=== PATIENT | female | born 1945 | race Caucasian/White ===

== ENCOUNTER 2020-12-14 12:19 | Outpatient (CLI) | payer MEDICARE, MEDICAID, SELFPAY ==
--- NOTE | ~2020-12-14 | CT_ITS ---
EXAMINATION: CT abdomen pelvis wo con DATE: 12/14/2020 12:42 INDICATION: Left upper quadrant abdominal pain for 3 weeks. Chronic diarrhea. TECHNIQUE: Computed tomography (CT) of the abdomen and pelvis was performed without intravenous contr ast. Automated exposure control and iterative reconstruction technique were employed. Exam dose: 117 0.91 mGy-cm total exam DLP. COMPARISON: None. FINDINGS: There is moderate right pleural effusion. There is a catheter in the right pleural space. T here is compressive atelectasis of the right lower lobe. No left pleural effusion. Trace pericardial effusion. Small sliding hiatal hernia. Postoperative change of the stomach and small bowel. The gallbladder appears to be surgically absent. No hepatic, splenic or pancreatic mass lesion is evident. Prominent fatty change of the liver. No porter creatic calcification. No bile duct or pancreatic duct dilatation is evident. Normal morphology of the adrenal glands. No renal mass lesion or urinary tract calculus or hydroureteronephrosis. The uterus, adnexal areas an d urinary bladder are unremarkable. There is extensive atherosclerotic calcification of the abdominal aorta but no aneurysm. No intraperi toneal or retroperitoneal or pelvic mass lesion or adenopathy or ascites is evident. Numerous diverticula of the sigmoid colon; no CT evidence of diverticulitis. Small bowel caliber is within normal range, but the increased proximal versus distal small bowel destiny montse may indicate mild partial obstruction at the postsurgical region. No bowel wall thickening, pneumatosis or intraperitoneal free air. There is up to approximately 14 x 38 mm area of hyperattenuation in the left anterior abdominal wall musculature, possibly a hematoma. Moderate burst fracture deformity of L2. Biconcavity of the L4 and particularly L5 vertebral bodies. Diffuse osteopenia. Degenerative changes at the apophyseal joints with associated grade 1 anterolisthesis at L4-5. IMPRESSION: Postoperative changes of the small bowel and stomach Diminished caliber of small bowel distal to the small bowel surgical site, which may indicate mild pa rtial obstruction Small sliding hiatal hernia Diverticulosis of the sigmoid colon Moderate right pleural effusion, with mild right lower lobe compressive atelectasis Reviewed, dictated and finalized at [facility]. Reviewed, dictated and finalized at location [facility]. ER IMPRESSION: Postoperative changes of the small bowel and stomach Diminished caliber of small bowel distal to the small bowel surgical site, whic h may indicate mild partial obstruction Small sliding hiatal hernia Diverticulosis of the sigmoid colon Moderate right pleural effusion, with mild right lower lobe compressive atelect asis
== END 2020-12-14 12:20 | disposition home or self-care (01) ==
LOC: CHSIMG 12:24
PROVIDERS: PCP Physician Assistant; Visit Provider Physician Assistant
DX: R10.12 Left upper quadrant pain (principal)
CPT/HCPCS: 74176

== ENCOUNTER 2021-09-24 09:40 | Outpatient (CLI) | payer OTHER, SELFPAY ==
--- NOTE | ~2021-09-24 | MMUS_ITS ---
EXAMINATION: MM diagnostic vicky BI w mat, US breast RT limited HISTORY: Follow-up right breast mass TECHNIQUE: Additional 3-D tomosynthesis images of the breasts were performed and synthetic 2-D images were generated. CAD analysis was submitted and interpreted. High resolution Limited right breast ult rasound was performed. COMPARISON: 05/05/2019. BREAST PARENCHYMAL COMPOSITION: Breast composed of scattered areas of fibroglandular density. FINDINGS: MAMMOGRAPHIC FINDINGS: There are no suspicious masses, calcifications or architectural distortion in either breast to sugges t malignancy. ULTRASOUND: Limited right breast ultrasound: Normal heterogeneous echotexture without focal mass. Mass seen on pr ior examination not demonstrated currently. IMPRESSION: 1. No evidence for malignancy in either breast. 2. Routine yearly screening mammogram and regular clinical breast examination are recommended. BI-RADS Category 1: Negative Reviewed, dictated and finalized at location [facility]. 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 No evidence for malignancy in either breast. 2. Routine yearly screening mammogram and regular clinical breast examination a re recommended. BI-RADS Category 1: Negative
--- NOTE | ~2021-09-24 | DEXA_ITS ---
Bone Density Report Name: Bonita Modi Age: 76 Sex: Female Ethnicity: White Date of : 1945 Indication: postmenopausal; screening for osteoporosis; height loss; prior fracture; hysterectomy; Referring Provider: Thien Grubbs Study: Bone densitometry was performed. Exam Date: September 24, 2021 Accession number: [id number] Bone Density: Region BMD T-score Z-score Classification AP Spine(L1-L4) 1.091 0.4 2.8 Normal Femoral Neck (Left) 0.619 -2.1 0.0 Osteopenia Total Hip (Left) 0.672 -2.2 -0.5 Osteopenia Femoral Neck (Right) 0.608 -2.2 -0.1 Osteopenia Total Hip (Right) 0.723 -1.8 -0.1 Osteopenia Femoral Neck Mean 0.613 -2.1 -0.1 Osteopenia Total Hip Mean 0.698 -2.0 -0.3 Osteopenia World Health Organization criteria for BMD impression classify patients as: Normal (T-score at or above -1.0), Osteopenia (T-score between -1.0 and -2.5), or Osteoporosis (T-score at or below -2.5). 10-year Fracture Risk(1): Major Osteoporotic Fracture 18% Hip Fracture 4.2% Reported Risk Factors: [place] (), Neck BMD=0.608, BMI=39.1, previous fracture (1) FRAX(R) Version 3.08. Fracture probability calculated for an untreated patient. Fracture probability may be lower if the patient has received treatment. Clinical Information Provided by Patient: Has had a low trauma fracture Has used the following medications: Prolia (i.e. denosumab), Vitamin D Has the following medical conditions: Hysterectomy Patient maximum height was 70 Menopause Age: 40 No regular weight bearing exercise Does not regularly consume dairy products Drinks caffeinated beverages Onset of menses at age 17 Number of children 1 Impression: The patient has low bone mass, based on the Left Total Hip T-score. The patient has risk factors, including: previous fracture. Discussion: BONE DENSITY IS LOW AT ONE OR MORE SKELETAL SITES. This patient's lowest T-score is low at one or more skeletal sites. It meets the World Health Organization's (WHO) criteria for ?low bone mass? (T-score between -1.0 and -2.5). The patient's 10-year risk of fracture as calculated by FRAX is less than the threshold where pharmacological therapy is recommended by the National Osteoporosis Foundation (NOF). However, all treatment decisions require clinical judgment and consideration of individual patient factors, including patient preferences, comorbidities, previous drug use, risk factors not captured in the FRAX model (e.g., frailty, falls, vitamin D deficiency, increased bone turnover, interval significant decline in bone density) and possible under or overestimation of fracture risk by FRAX. The patient should follow a healthful lifestyle (good nutrition with adequate calcium and vitamin D, and appropriate weight-bearing ex
== END 2021-09-24 09:41 | disposition home or self-care (01) ==
PROVIDERS: PCP Family Medicine; Visit Provider Family Medicine
DX: M81.0 Age-related osteoporosis without current pathological fracture (principal); R92.8 Other abnormal and inconclusive findings on diagnostic imaging of breast
CPT/HCPCS: 76642; 77062; 77066; 77080; G0279

== ENCOUNTER 2021-12-25 10:09 | Outpatient (CLI) | payer OTHER, SELFPAY | END 2021-12-25 10:10 | disposition home or self-care (01) | LOC: CHSAUDIO 10:13 | PROVIDERS: PCP Family Medicine; Visit Provider Family Medicine | DX: H81.09 Meniere's disease, unspecified ear (principal); H91.90 Unspecified hearing loss, unspecified ear | CPT/HCPCS: 92557; 92567 ==

== ENCOUNTER 2022-03-07 11:12 | Outpatient (CLI) | payer MEDICARE, SELFPAY ==
[2022-03-07 11:37] LABS: Hemoglobin 11.3 g/dL (11.7-13.8); Mean Corpuscular HGB Conc 33.2 g/dL (32.0-36.0); Mean Corpuscular Hemoglobin 31.4 pg (27.0-31.0); Mean Corpuscular Volume 94.4 fL (78.0-102.0); Mean Platelet Volume 8.7 fl (9.2-11.8); Platelet Count Result 220 K/mm3 (150-420); Red Cell Distribution Width 13.6 % (11.6-14.4); White Blood Count 5.3 K/mm3 (4.8-10.8)
[2022-03-07 17:46] LABS: Alanine Aminotransferase 15 U/L (14-59); Albumin Level 3.4 g/dL (3.4-5.0); Anion Gap 4 mmol/L (8-16); Aspartate Amino Transferase 13 U/L (15-37); Bilirubin,Total 0.7 mg/dL (0.00-1.00); Blood Urea Nitrogen 17 mg/dL (7-18); Calcium 9.8 mg/dL (8.5-10.1); Carbon Dioxide 33 mmol/L (21-32); Chloride 91 mmol/L (98-108); Cholesterol 180 mg/dL (0-200); Estimated Glomerular Filt Rate > 60; Glucose 107 mg/dL (70-99); HDL Direct 76 mg/dL (40-60); Osmolality Calculated 267 mOsm/kg (285-295); Potassium 4.6 mmol/L (3.5-5.1); Sodium 128 mmol/L (136-145); Triglycerides 83 mg/dL (0-150)
[2022-03-07 17:47] LABS: Alkaline Phosphatase 76 U/L (46-116); LDL Cholesterol Calculated 87 mg/dL (<130)
== END 2022-03-07 11:13 | disposition home or self-care (01) ==
LOC: CHSLAB 11:16
PROVIDERS: PCP Physician Assistant; Visit Provider Physician Assistant
DX: I10 Essential (primary) hypertension (principal); Z00.00 Encounter for general adult medical examination without abnormal findings
CPT/HCPCS: 36415; 80053; 80061; 85027

== ENCOUNTER 2022-03-14 11:30 | Outpatient (RCR) | payer MEDICARE, SELFPAY | END 2022-04-21 23:59 | disposition home or self-care (01) | LOC: ANHBWCAUD 11:30 | PROVIDERS: PCP Family Medicine; Visit Provider Family Medicine | DX: Z46.1 Encounter for fitting and adjustment of hearing aid (principal) | CPT/HCPCS: 92592; 99199 ==

== ENCOUNTER 2022-04-03 16:44 | Observation (INO) | payer MEDICARE, SELFPAY ==
--- NOTE | ~2022-04-03 | CT_ITS ---
EXAMINATION: CT brain wo con DATE: 04/03/2022 17:48 INDICATION: Dizziness. Hydrocephalus. TECHNIQUE: Computed tomography (CT) of the head was performed without intravenous contrast. The mA wa s adjusted according to patient size. Iterative reconstruction technique was employed. The dose-lengt h product was 681.00 mGy-cm. COMPARISON: None FINDINGS: There is ventriculomegaly involving the lateral and third ventricles. There is a right fron tian ventriculostomy catheter with tip in body of right lateral ventricle. There is chronic encephalom alacia in right frontal lobe along the catheter tract. There are scattered areas of low attenuation i n the cerebral white matter. There is no intracranial hemorrhage, acute infarction, or abnormal intra cranial mass lesion. There is mild mucosal thickening in the paranasal sinuses. The mastoid air cells are normal. . IMPRESSION: 1. Ventriculomegaly involving the lateral and third ventricles with shunt catheter in expected positi on. Comparison with prior imaging is recommended. 2. Chronic encephalomalacia in right frontal lobe along the shunt catheter. 3. Mild nonspecific cerebral white matter disease, which likely represents chronic small vessel ische nicolette disease. Reviewed, dictated and finalized at location [facility]. IMPRESSION: 1. Ventriculomegaly involving the lateral and third ventricles with shunt kita ter in expected position. Comparison with prior imaging is recommended. 2. Chronic encephalomalacia in right frontal lobe along the shunt catheter. 3. Mild nonspecific cerebral white matter disease, which likely represents inventory control/shipping receiving janelle small vessel ischemic disease.
[2022-04-03 17:03] VITALS: BP 128/67; PULSE 97; RESP 16; TEMP 36.3; O2SAT 94
--- NOTE | 2022-04-03 17:05 | ECG_ITS ---
Measurements Intervals [place] Rate: 86 P: 60 HI: 117 QRS: 50 QRSD: 72 T: 42 QT: 368 QTc: 442 Interpretive Statements SINUS RHYTHM WITH SHORT HI INTERVAL WITHIN NORMAL LIMITS NO PREVIOUS ECG AVAILABLE FOR COMPARISON Electronically Signed On 04-04-2022 14:47:59 CDT by Matt Jasso M.D.
--- NOTE | 2022-04-03 17:12 | ED.NAVMDI ---
HPI - Nausea/Vomiting/Diarrhea General Chief complaint: Nausea/Vomiting/Diarrhea Stated complaint: AMBULANCE Source: patient and EMS Mode of arrival: EMS Limitations: no limitations History of Present Illness HPI Narrative: this is a 76-year-old female who presents via EMS she had episode of dizziness after she tried to get up out of bed and laid on the floor with no injuries no head injury, otherwise patient has a history of Meniere's disease and normal pressure hydrocephalus, has issues with some dizziness secondary to her Meniere's disease and typically EMS presents and is typically a lift assist, but this time the patient felt nauseous with diarrhea with no chest pain no shortness of breath no fever chills no abdominal pain no dysuria or flank pain. MD elicited complaint: nausea and diarrhea Onset (ago): day(s) Description of vomiting: watery Associated nausea: Yes Associated abdominal pain: No Severity: moderate Related Data Home Medications Medication Instructions Recorded Confirmed calcium carbonate 500 mg calcium 500 mg PO DAILY 09/09/21 10/07/21 (1,250 mg) tablet (Calcium 500) cholecalciferol (vitamin D3) 250 250 mcg PO DAILY 09/09/21 10/07/21 mcg (10,000 unit) capsule meclizine 25 mg tablet 25 mg PO TID PRN 09/09/21 10/07/21 ondansetron 4 mg disintegrating 4 mg PO Q6H 09/09/21 10/07/21 tablet fluoxetine 20 mg capsule 20 mg PO DAILY 04/03/22 04/03/22 Allergies Allergy/AdvReac Type Severity Reaction Status Date / Time epinephrine Allergy Severe SHAKINESS Verified 04/03/22 17:11 IVP DYE Allergy Severe RESP ARREST Uncoded 04/03/22 17:11 Contrast Media Allergy Unknown IVP DYE = Uncoded 04/03/22 17:11 RESP ARREST Review of Systems Review of Systems: All systems reviewed & are unremarkable except as noted in HPI and below PMFSH Past Medical History Medical History COPD (chronic obstructive pulmonary disease) Hypertension Meniere disease Normal pressure hydrocephalus Family History Family History Other Cerebrovascular accident Diabetes mellitus Family history of mental disorder Hypertension Social History Social History Smoking status: Former smoker Smoking end date: 10/19/10 Alcohol intake: never Substance use: never Substance use type: does not use Exam Const: General: healthy appearing and no acute distress Nutritional Appearance: well nourished Orientation/consciousness: patient oriented x3 Limitations: no limitations HENMT: Head: normal to inspection Ears: external ears normal Eyes: Conjunctivae: conjunctivae normal Pupils: Equal, round and reactive pupils present EOM: EOMs intact bilaterally Chest: Chest palpation & inspection: normal inspection of the chest Resp: Effort & Inspection: normal respiratory effort Auscultation: clear to auscultation bilaterally Cardio: Rate: regular rate Rhythm: regular rhythm GI: GI Palp: Yes Soft to palpation Auscultation: normal bowel sounds Urinary Catheter: Urinary Catheter: patent and draining Skin: General skin exam: normal color Rashes: no rashes Wounds: no wounds Neuro: General: patient oriented x3 and moves all extremities Cranial nerves: Yes Nystagmus not present Speech: normal speech Extrem: General: normal to inspection Psych: Mental Status: mental status grossly normal Course Course Emergency Course: Patient had CT scan and EKG as well as labs performed Vital Signs Vital signs: Vital Signs Temperature 36.3 C L 04/03/22 17:03 Pulse Rate 97 04/03/22 17:03 Respiratory Rate 16 04/03/22 17:03 Blood Pressure 128/67 04/03/22 17:03 Pulse Oximetry 94 04/03/22 17:03 Oxygen Delivery Room Air 04/03/22 17:03 Temperature 36.3 C L 04/03/22 17:03 Pulse Rate 97 04/03/22 17:03 Respiratory Rate 16 04/03/22 1
[2022-04-03 17:29] LABS: Basophils Absolute Auto 0.01 K/mm3 (0.00-0.10); Basophils Percent Auto 0.1 % (0.0-1.0); Hematocrit 35.4 % (35.0-42.0); Hemoglobin 11.9 g/dL (11.7-13.8); Immature Granulocyte Absolute 0.03 K/mm3 (0.00-0.00); Immature Granulocyte Percent A 0.4 % (0.0-0.0); Lymphocytes Absolute Auto 0.46 K/mm3 (1.10-4.50); Lymphocytes Percent Auto 6.3 % (18.0-42.0); Mean Corpuscular HGB Conc 33.6 g/dL (32.0-36.0); Mean Corpuscular Hemoglobin 31.2 pg (27.0-31.0); Mean Corpuscular Volume 92.9 fL (78.0-102.0); Mean Platelet Volume 8.7 fl (9.2-11.8); Monocytes Absolute Auto 0.36 K/mm3 (0.10-0.90); Monocytes Percent Auto 4.9 % (2.0-11.0); Neutrophils Absolute Auto 6.5 K/mm3 (1.7-7.2); Neutrophils Percent Auto 88.3 % (50.0-70.0); Platelet Count Result 247 K/mm3 (150-420); Red Blood Count 3.81 M/mm3 (4.20-5.40); White Blood Count 7.3 K/mm3 (4.8-10.8)
[2022-04-03 17:44] LABS: Alanine Aminotransferase 14 U/L (14-59); Albumin Level 3.4 g/dL (3.4-5.0); Alkaline Phosphatase 84 U/L (46-116); Anion Gap 7 mmol/L (8-16); Aspartate Amino Transferase 11 U/L (15-37); Blood Urea Nitrogen 14 mg/dL (7-18); Calcium 10.1 mg/dL (8.5-10.1); Carbon Dioxide 30 mmol/L (21-32); Chloride 93 mmol/L (98-108); Estimated Glomerular Filt Rate > 60; Glucose 131 mg/dL (70-99); Osmolality Calculated 272 mOsm/kg (285-295); Potassium 4.1 mmol/L (3.5-5.1); Sodium 130 mmol/L (136-145); Total Protein 6.8 g/dL (6.4-8.2)
[2022-04-03] MEDS: ONDANSETRON INJ 4 MG/2 ML VIAL IV PUSH (17:58)
[2022-04-03] MEDS: SODIUM CHLORIDE 0.9% IV 500 ML 999 ML IV CONT (17:59)
--- NOTE | 2022-04-03 18:08 | PC.NURSE ---
patient states she urinated right before coming, has not had anything to eat or drink all day, does not feel like she could go at this time. ivf infusing, patient provided call light to let rn know when she is able to use toilet.
[2022-04-03 18:28] LABS: Magnesium 1.5 mg/dL (1.8-2.4)
[2022-04-03] MEDS: PANTOPRAZOLE 40 MG TABLET PO (18:58)
[2022-04-03 20:00] VITALS: O2SAT 95
[2022-04-03 20:15] VITALS: BP 139/78; PULSE 86; RESP 14; TEMP 36.9; O2SAT 95
--- NOTE | 2022-04-03 20:36 | ADMGEN ---
This patient, Bonita Modi, was admitted to 2nd Floor Room 203-2. Patient/family oriented to hospital policies and general routines including ID bracelet, bed and alarms, visiting hours, pain management, procedures, bathroom and other care routines, personal items, smoking policy, room service/diet, and visiting hours. Information on how to activate the Rapid Response Team has been discussed. Patient/Family are encouraged to report perceived risks to care and to ask questions if they do not understand what they are told or what they should do.
[2022-04-03 20:38] VITALS: BMI 27.2
[2022-04-03] MEDS: SODIUM CHLORIDE 0.9% IV 1,000 ML 100 ML IV CONT (21:01)
[2022-04-03 21:57] VITALS: PULSE 86; RESP 14; O2SAT 95
[2022-04-04] VITALS: BP 121/75; PULSE 76; RESP 12; TEMP 37.6; O2SAT 95
--- NOTE | 2022-04-04 04:11 | PC.NURSE ---
Bladder scanner utilized to check for residual urine and check for possibility of obtaining sample for UA. Only 35 mls present after episode of incontinence
[2022-04-04 05:27] LABS: Hematocrit 33.5 % (35.0-42.0); Hemoglobin 10.8 g/dL (11.7-13.8); Mean Corpuscular HGB Conc 32.2 g/dL (32.0-36.0); Mean Corpuscular Hemoglobin 30.3 pg (27.0-31.0); Mean Corpuscular Volume 94.1 fL (78.0-102.0); Mean Platelet Volume 8.9 fl (9.2-11.8); Platelet Count Result 237 K/mm3 (150-420); Red Blood Count 3.56 M/mm3 (4.20-5.40); Red Cell Distribution Width 13.2 % (11.6-14.4); White Blood Count 7.4 K/mm3 (4.8-10.8)
[2022-04-04 05:38] LABS: Anion Gap 4 mmol/L (8-16); Blood Urea Nitrogen 12 mg/dL (7-18); Calcium 9.6 mg/dL (8.5-10.1); Carbon Dioxide 33 mmol/L (21-32); Chloride 96 mmol/L (98-108); Estimated CRCL calculation 60 ml/min; Estimated Glomerular Filt Rate > 60; Glucose 91 mg/dL (70-99); Osmolality Calculated 275 mOsm/kg (285-295); Potassium 4.3 mmol/L (3.5-5.1); Sodium 133 mmol/L (136-145)
[2022-04-04 07:41] VITALS: BP 120/72; PULSE 84; RESP 16; TEMP 37; O2SAT 95
[2022-04-04] MEDS: hydroCHLOROthiazide 25 MG TABLET PO (08:24)
[2022-04-04] MEDS: ENOXAPARIN 40 MG/0.4 ML SYRINGE SUB-Q (08:24)
[2022-04-04] MEDS: FLUoxetine HCL 10 MG CAPSULE 20 MG PO (08:25)
[2022-04-04] MEDS: lisinopriL 20 MG TABLET PO (08:25)
[2022-04-04] MEDS: MECLIZINE HCL 25 MG TABLET PO ×2 (08:29→16:49)
[2022-04-04] MEDS: LOPERAMIDE HCL 2 MG CAPSULE PO ×2 (10:45→20:14)
--- NOTE | 2022-04-04 11:25 | PC.NURSE ---
Patient incontinent of bowel in bed and asked nurse for Tylenol 4 to stop diarrhea. Nurse explained to patient that she doesn't have an order for T4 and gave patient immodium. Patient stated that she needed to have another bowel movement. Patient complained that ONLY Tylenol 4 would help her diarrhea. Patient explained that REWINDER had ordered immodium and we were going to give it a bit to work. Septic Technician placed patient on bed porter and left the room. Moments later patient rang that she was finished. When comic writer returned to room and assisted patient to side lying, the bed porter was sitting, empty, on top of the bowel movement and the bed, pillowcases, and patient's hands and socks were dirty. Patient continued to tell nurse that nurse must not mind cleaning it up, because ONLY Tylenol 4 works for her diarrhea. Septic Technician explained again that comic writer doesn't prescribe, and REWINDER wants to try immodium.
--- NOTE | 2022-04-04 12:16 | PM.IMHP ---
H&P: HPI History of Present Illness Date/Time: 04/04/22 12:16 Chief Complaint: Nausea vomiting diarrhea and dizziness Narrative: This is a 76-year-old female presents to our emergency department with complaints of dizziness and nausea vomiting and diarrhea secondary to her M?ni?re's disease. Patient has a past medical history of COPD, hypertension, and M?ni?re's disease. According to the patient at approximately 4:00 AM in the morning she started to experiencing nausea and vomiting and dizziness attempted to get out of bed and slid out of. EMS was called and patient was transported to our emergency department. Patient notes that she has a history of nausea vomiting diarrhea and dizziness with her M?ni?re's disease. Patient was evaluated by PT it and was deemed unsafe for patient to discharge home with her dizziness. She will stay an additional day for observation. Patient continues to have nausea and vomiting and diarrhea with dizziness. Which improved her nausea vomiting diarrhea and dizziness. WBCs 7.3, hemoglobin 11.9, hematocrit 35.4, platelets 247, sodium 130, potassium 4.1, BUN 14, creatinine 0.74, glucose 131 magnesium 1.5, liver function test within normal limit, CT of the head no new findings EKG sinus rhythm with a heart rate of 86. The patient denies SOB, CP, palpitation, extremity numbness,, constipation, chills, or fever. Review of Systems Review of Systems: A 14 organ system Review of Systems was performed and pertinent positives included in the HPI, otherwise remaining ROS is negative. [facility] Past Medical History Medical History COPD (chronic obstructive pulmonary disease) Hypertension Meniere disease Normal pressure hydrocephalus Family History Family History Other Cerebrovascular accident Diabetes mellitus Family history of mental disorder Hypertension Social History Social History Smoking status: Former smoker Tobacco type: cigarettes Smoking end date: 10/19/10 Alcohol intake: current Drinks per week: 2 Substance use: never Substance use type: does not use Spiritual care concerns: No Meds Home Medications and Allergies Home Medications Medication Instructions Recorded Confirmed Type calcium carbonate 500 mg calcium 500 mg PO DAILY 09/09/21 04/03/22 History (1,250 mg) tablet (Calcium 500) cholecalciferol (vitamin D3) 250 250 mcg PO DAILY 09/09/21 04/03/22 History mcg (10,000 unit) capsule meclizine 25 mg tablet 25 mg PO TID PRN Dizziness 09/09/21 04/03/22 History ondansetron 4 mg disintegrating 4 mg PO Q6H 09/09/21 04/03/22 History tablet denosumab 60 mg/mL subcutaneous 60 mg subcut [id number] #1 mL 09/30/21 04/03/22 Rx syringe (Prolia) sertraline 25 mg tablet See Rx Instructions .Route 12/31/21 04/03/22 Rx .COMPLEX #90 tabs omeprazole 20 mg capsule,delayed 20 mg PO BID #180 caps 01/01/22 04/03/22 Rx release acetaminophen 300 mg-codeine 60 mg 1 tablet PO Q6H PRN Dumping 01/07/22 04/03/22 Rx tablet syndrome #130 tabs mirabegron 50 mg tablet,extended See Rx Instructions .Route 03/04/22 04/03/22 Rx release 24 hr (Myrbetriq) .COMPLEX #90 tabs lisinopril 20 1 tablet PO DAILY #90 tabs 04/01/22 04/03/22 Rx mg-hydrochlorothiazide 25 mg tablet fluoxetine 20 mg capsule 20 mg PO DAILY 04/03/22 04/03/22 History Allergies Allergy/AdvReac Type Severity Reaction Status Date / Time epinephrine Allergy Severe SHAKINESS Verified 04/03/22 17:11 IVP DYE Allergy Severe RESP ARREST Uncoded 04/03/22 17:11 Contrast Media Allergy Unknown IVP DYE = Uncoded 04/03/22 17:11 RESP ARREST Vital Signs Vital Signs - 24 hr 04/03/22 17:03 04/03/22 20:15 04/03/22 21:57 Temperature 97.4 F L 98.5 F Pulse Rate 97 86 86 Respiratory Rate 16 14 14 Blood Pressure 128/67 139/78 Pulse Oximetry 94 95
[2022-04-04] MEDS: MAGNESIUM OXIDE 400 MG TABLET PO (12:52)
[2022-04-04] MEDS: OXYBUTYNIN CHLORIDE 5 MG TABLET PO ×2 (12:53→16:49)
[2022-04-04 16:00] VITALS: BP 101/64; PULSE 76; RESP 16; TEMP 36.2; O2SAT 91
--- NOTE | 2022-04-04 18:21 | PC.NURSE ---
Patient asked loan underwriter to hand patient her purse. Industrial Psychology Teacher observed several medicine bottles in the bag. Industrial Psychology Teacher removed 4 medication bottles from the purse that were within writers sight. Industrial Psychology Teacher asked patient if she had any more meds in her purse, and patient said no.
--- NOTE | 2022-04-04 18:24 | PC.NURSE ---
President Practicing Urologist assured patient that she would get her medication back upon discharge and typewriter assembler placed meds with patient's bag of home meds in the locked med room.
[2022-04-04 18:27] LABS: Add Urine Microscopic? YES; Bilirubin Urine Negative (Negative); Blood Urine Negative (Negative); Color Urine Light Yellow (Yellow); Glucose Urine UA Negative (Negative); Ketones Urine Trace (Negative); Leukocyte Esterase Ur 1+ (Negative); Nitrate Urine Positive (Negative); Protein Urine Negative (Negative); Urobilinogen Urine 0.2 mg/dL (0.2-1.0)
[2022-04-04 18:37] LABS: Appearance Urine Cloudy (Clear); RBC Urine 0-2 /hpf (0-2); Squamous Epithelial Cell Urine Few /hpf (Few); WBC Urine 0-3 /hpf (0-3)
[2022-04-04 18:38] LABS: Bacteria Urine 4+ /hpf
[2022-04-04] MEDS: ACETAMINOPHEN 325 MG TABLET 650 MG PO (20:13)
[2022-04-05] VITALS: BP 118/71; PULSE 78; RESP 18; TEMP 35.9; O2SAT 93
[2022-04-05 05:09] LABS: Hematocrit 31.1 % (35.0-42.0); Hemoglobin 10.4 g/dL (11.7-13.8); Mean Corpuscular HGB Conc 33.4 g/dL (32.0-36.0); Mean Corpuscular Hemoglobin 31.3 pg (27.0-31.0); Mean Corpuscular Volume 93.7 fL (78.0-102.0); Platelet Count Result 210 K/mm3 (150-420); Red Blood Count 3.32 M/mm3 (4.20-5.40); Red Cell Distribution Width 13.2 % (11.6-14.4); White Blood Count 5.1 K/mm3 (4.8-10.8)
[2022-04-05 05:24] LABS: Alanine Aminotransferase 19 U/L (14-59); Albumin Level 2.9 g/dL (3.4-5.0); Alkaline Phosphatase 67 U/L (46-116); Anion Gap 3 mmol/L (8-16); Aspartate Amino Transferase 13 U/L (15-37); Bilirubin,Total 0.7 mg/dL (0.00-1.00); Blood Urea Nitrogen 9 mg/dL (7-18); Carbon Dioxide 33 mmol/L (21-32); Chloride 95 mmol/L (98-108); Estimated CRCL calculation 64 ml/min; Estimated Glomerular Filt Rate > 60; Glucose 88 mg/dL (70-99); Osmolality Calculated 269 mOsm/kg (285-295); Potassium 3.6 mmol/L (3.5-5.1); Sodium 131 mmol/L (136-145); Total Protein 5.9 g/dL (6.4-8.2)
[2022-04-05 07:46] VITALS: O2SAT 96
[2022-04-05 08:00] VITALS: BP 120/70; PULSE 80; RESP 14; TEMP 36.6; O2SAT 96; O2SAT 98
--- NOTE | 2022-04-05 08:18 | PM.DS ---
DS: Admitting Diagnosis Discharge Date 04/05/2022 Admitting Diagnosis Nausea vomiting diarrhea and dizziness DS: Discharge Diagnosis Discharge Diagnosis (1) Weakness: Code(s): R53.1 - Weakness Status: Acute Assessment and Plan: Improved Secondary to dizziness caused by M?ni?re's disease Evaluated by PT OT unsafe for patient to go home until her dizziness is controlled (2) Dizziness: Code(s): R42 - Dizziness and giddiness Status: Acute Assessment and Plan: Secondary to M?ni?re's disease Continue home medication (3) Acute hyponatremia: Code(s): E87.1 - Hypo-osmolality and hyponatremia Status: Acute Assessment and Plan: Improving sodium 130>133 >131 at baseline (4) Normal pressure hydrocephalus: Code(s): G91.2 - (Idiopathic) normal pressure hydrocephalus Status: Acute (5) Meniere disease: Code(s): H81.09 - Meniere's disease, unspecified ear Status: Acute Assessment and Plan: Continue home medication (6) Hypertension: Code(s): I10 - Essential (primary) hypertension Status: Acute Assessment and Plan: Stable Continue home medication (7) COPD (chronic obstructive pulmonary disease): Code(s): J44.9 - Chronic obstructive pulmonary disease, unspecified Status: Acute Assessment and Plan: Stable Continue home medication (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 Status: Acute Assessment and Plan: Started Imodium (9) Anxiety and depression: Code(s): F41.9 - Anxiety disorder, unspecified; F32.A - Depression, unspecified Status: Acute Assessment and Plan: Stable Continue home medication (10) Electrolyte imbalance: Code(s): E87.8 - Other disorders of electrolyte and fluid balance, not elsewhere classified Status: Acute Assessment and Plan: Magnesium 1.5 Order supplements (11) UTI (urinary tract infection): Code(s): N39.0 - Urinary tract infection, site not specified Status: Acute Assessment and Plan: Patient UA positive for nitrates, leukocytes esterase and bacteria Blood culture pending Patient will discharge home with Macrobid x7 days Plan UTI, dizziness secondary to M?ni?re's disease DS: Summary Hospital Course Reason for hospitalization: Nausea vomiting diarrhea and dizziness Hospital Course: This is a 76-year-old female presents to our emergency department with complaints of dizziness and nausea vomiting and diarrhea secondary to her M?ni?re's disease.? Patient has a past medical history of COPD, hypertension, and M?ni?re's disease.? According to the patient at approximately 4:00 AM in the morning she started to experiencing nausea and vomiting and dizziness attempted to get out of bed and slid out of.? EMS was called and patient was transported to our emergency department.? Patient notes that she has a history of nausea vomiting diarrhea and dizziness with her M?ni?re's disease.? Patient was evaluated by PT it and was deemed unsafe for patient to discharge home with her dizziness.? Patient notes that her dizziness has improved and she is stable enough to discharge home. Patient will discharge with antibiotics due to a urinary tract infection. According to patient she has a history of having UTIs. The patient denies SOB, CP, palpitation, extremity numbness, lightheadedness,, constipation, chills, or fever. Patient continues to have slight dizziness and diarrhea which is chronic for her. Patient observed going to bedside commode appears to be stable Time Spent with Patient Time attestation: Total time spent providing and/or coordinating discharge services: Exam Narrative: GENERAL: This is a well-nourished, well-developed patient, in no apparent distress. HEAD: normocephalic, atraumatic. EYES: PERRL. Sclera clear/white. Vision is grossly intact. EARS: External ear
[2022-04-05] MEDS: MIRABEGRON 25 MG ER TABLET 50 MG PO (09:00)
[2022-04-05] MEDS: SERTRALINE HCL 50 MG TABLET 25 MG PO (09:04)
[2022-04-05] MEDS: MAGNESIUM OXIDE 400 MG TABLET PO (09:05)
[2022-04-05] MEDS: OXYBUTYNIN CHLORIDE 5 MG TABLET PO ×2 (09:05→13:18)
[2022-04-05] MEDS: lisinopriL 20 MG TABLET PO (09:06)
[2022-04-05] MEDS: FLUoxetine HCL 10 MG CAPSULE 20 MG PO (09:06)
[2022-04-05] MEDS: hydroCHLOROthiazide 25 MG TABLET PO (09:06)
[2022-04-05] MEDS: MECLIZINE HCL 25 MG TABLET PO (09:20)
--- NOTE | 2022-04-05 13:54 | PC.NURSE ---
Pt discharged home in stable condition. Discharge instructions given to pt. RN instructed pt regarding the new medication: Macrobid for her UTI, dosage , times, SE and duration, 7 days . RN transported the pt to family car via and assisted her into the vehicle.
--- NOTE | 2022-04-09 13:13 | PC.NURSE ---
Unable to contact for discharge call back.
== END 2022-04-05 13:40 | disposition home or self-care (01) ==
LOC: CHSED 18:15 → CHS2ND 19:16
PROVIDERS: Nurse Practitioner; Admitting Provider Internal Medicine; Emergency Provider Emergency Medicine; PCP Physician Assistant; Visit Provider Internal Medicine
DX: H81.09 Meniere's disease, unspecified ear (principal); N39.0 Urinary tract infection, site not specified; R53.1 Weakness; E87.1 Hypo-osmolality and hyponatremia; E87.8 Other disorders of electrolyte and fluid balance, not elsewhere classified; I10 Essential (primary) hypertension; J44.9 Chronic obstructive pulmonary disease, unspecified; K91.1 Postgastric surgery syndromes; G91.2 (Idiopathic) normal pressure hydrocephalus; F41.9 Anxiety disorder, unspecified; Z87.891 Personal history of nicotine dependence; Z98.2 Presence of cerebrospinal fluid drainage device
CPT/HCPCS: 36415; 70450; 80048; 80053; 81001; 83735; 85025; 85027; 87077; 87086; 87088; 87186; 93005; 96361; 96365; 96372; 96374; 97161; 97165; 97530; 99285; A9270; G0378; J1650; J2405; J7030; J7040

== ENCOUNTER 2022-05-04 12:49 | Emergency (ER) | payer MEDICARE, SELFPAY ==
--- NOTE | ~2022-05-04 | XR_ITS ---
XR chest 1V portable DATE: 05/04/2022 13:56 INDICATION: Left chest pain after fall TECHNIQUE: Portable supine AP chest COMPARISON: 11/05/2017 two-view chest FINDINGS: Right ventriculoperitoneal shunt catheter tubing, distal tip overlying the lower right ches t. Right pleural effusion is suggested, suggesting chronic right pleural effusion. Chronic minimal bl unting of the left costophrenic angle. There is chronic increased density overlying the right lower lung which may be due to infiltrate, ate lectasis, consolidation, fibrotic change and/or right diaphragmatic elevation. The lungs otherwise appear hyperinflated but clear. No pneumothorax. Heart size appears within normal limits. Aortic arch calcification. Diffuse osteopenia. Multiple right rib fractures. Right shoulder prosthesis. IMPRESSION: Multiple right rib fractures Probable loculated right pleural effusion, right basilar atelectasis and/or infiltrate Bilateral hyperinflation Minimal blunting of left costophrenic angle Right shoulder prosthesis Ventricular shunt catheter overlying right neck, chest, distal tip terminating over the lower right c hest Reviewed, dictated and finalized at location A. IMPRESSION: Multiple right rib fractures Probable loculated right pleural effusion, right basilar atelectasis and/or inf iltrate Bilateral hyperinflation Minimal blunting of left costophrenic angle Right shoulder prosthesis Ventricular shunt catheter overlying right neck, chest, distal tip terminating over the lower right chest
--- NOTE | ~2022-05-04 | XR_ITS ---
EXAM: XR elbow LT 2V DATE: 05/04/2022 13:55 HISTORY: Fall. cannot extend arm. limited movement . COMPARISON: None available. FINDINGS: Decreased mineralization. No fracture or dislocation. No lytic or blastic lesion. Joint sp aces are maintained. No erosion or periosteal change. Small elbow joint effusion. IMPRESSION: Small left elbow joint effusion may reflect the presence of an occult radial head fractur e. Reviewed, dictated and finalized at location K. IMPRESSION: Small left elbow joint effusion may reflect the presence of an occu lt radial head fracture.
--- NOTE | ~2022-05-04 | CT_ITS ---
EXAMINATION: CT diagnostic chest wo con DATE: 05/04/2022 14:22 INDICATION: Suspect Rib fractures on left TECHNIQUE: Computed tomography (CT) of the chest was performed without intravenous contrast. Automate d exposure control and iterative reconstruction technique were employed. The dose-length product was 315.21 mGy-cm. COMPARISON: None. FINDINGS: CHEST: Ventriculopleural shunt tubing present, intact throughout its visualized length. Thoracic aorta: Mild ectasia and arch calcification. Lung parenchyma and airways: Senescent change. Biapical pleural scarring. Right basilar scarring. Air ways are patent.. Thoracic inlet, axillae and chest wall: No thyroid or soft tissue mass. No axillary lymphadenopathy. Mediastinum: Moderate hiatal hernia. Heart and pericardium: Cardiomegaly. Trace pericardial fluid. Mitral and aortic valve calcification. Coronary artery calcifications: Moderate. Pleura: Shunt tubing terminates in the right posterior pleural space with a moderate volume pleural f luid collection that may be loculated. Upper abdomen: No significant finding. Thoracic bones: Nondisplaced and mildly displaced lateral and anterolateral fractures of right ribs 4 through 7. Nondisplaced left lateral eighth rib fracture. Exaggerated thoracic kyphosis, with mild a nterior wedge deformity of multiple upper thoracic vertebral bodies, including mild concave superior endplate deformities at T4-6. Superior endplate deformity of L2. IMPRESSION: 1. Nondisplaced and mildly displaced lateral and anterolateral rib fractures of ribs 4 through 7 on t he right. Nondisplaced left lateral eighth rib fracture. 2. Mild anterior wedge deformity and superior endplate deformities at T4-6 and L2, presumably chronic unless accompanied by pain/point tenderness. 3. Ventriculopleural shunt tubing terminates in a possibly loculated right pleural fluid collection. 4. Trace pericardial effusion. Reviewed, dictated and finalized at location K. IMPRESSION: 1. Nondisplaced and mildly displaced lateral and anterolateral rib fractures of ribs 4 through 7 on the right. Nondisplaced left lateral eighth rib fracture. 2. Mild anterior wedge deformity and superior endplate deformities at T4-6 and L2, presumably chronic unless accompanied by pain/point tenderness. 3. Ventriculopleural shunt tubing terminates in a possibly loculated right pleu ral fluid collection. 4. Trace pericardial effusion.
--- NOTE | ~2022-05-04 | CT_ITS ---
EXAMINATION: CT brain wo con DATE: 05/04/2022 14:23 INDICATION: fall. hx of shunt placement. . TECHNIQUE: Computed tomography (CT) of the head was performed without intravenous contrast. The mA wa s adjusted according to patient size. Iterative reconstruction technique was employed. The dose-lengt h product was 315.21 mGy-cm. COMPARISON: 04/03/2022 FINDINGS: No acute intracranial hemorrhage or extra-axial fluid collection. Right frontal approach IT CONSULTING DIRECTOR shunt, terminating in the right lateral ventricle. The ventricular system i s enlarged but stable. No mass or herniation. Basilar cisterns are patent. No acute ischemic infarct. Unremarkable dural venous sinus attenuation. No acute osseous abnormality. The aerated spaces are clear. Catheter tract encephalomalacia in the right frontal lobe. Mild chronic white matter change. IMPRESSION: No acute intracranial process. Reviewed, dictated and finalized at location K.
--- NOTE | ~2022-05-04 | XR_ITS ---
EXAM: XR shoulder LT min 2V DATE: 05/04/2022 13:56 HISTORY: Fall. cannot extend arm. limited movement . COMPARISON: None available. FINDINGS: Decreased mineralization. No fracture or dislocation. No lytic or blastic lesion. Mild deg enerative AC joint and glenohumeral joint changes. No erosion or periosteal change. Soft tissues with in normal limits. IMPRESSION: No acute osseous finding the left shoulder. Reviewed, dictated and finalized at location K.
--- NOTE | ~2022-05-04 | CT_ITS ---
EXAMINATION: CT facial & cervical spine wo DATE: 05/04/2022 14:23 INDICATION: Fall. laceration towards frontal portion of jaw/nose area TECHNIQUE: Computed tomography (CT) of the maxillofacial region and cervical spine was performed with out intravenous contrast. Automated exposure control and iterative reconstruction technique were empl oyed. The dose-length product was 315.21 mGy-cm. COMPARISON: None FINDINGS: CERVICAL: Vertebral Body Alignment: Intact. Craniocervical and atlantoaxial alignment: Moderate degenerative change with pannus formation. Trace anterolisthesis of C3 on C4, likely on a degenerative basis. Otherwise alignment is intact. Osseous structures/fracture: No evidence of a lytic or blastic process in the visualized spine. No e vidence of acute fracture. Cervical soft tissues: The paraspinal soft tissues planes are maintained. Biapical pleural scarring. Degenerative changes: Multilevel degenerative disc and facet change. Severe degenerative disc disease at C4-5. Multilevel severe bilateral neural foraminal narrowing. FACE: Soft Tissues: No significant superficial soft tissue swelling. Facial bones: No acute fracture. No lytic or blastic process. Eyes: The globes are intact. The soft tissue planes of the orbits are maintained. Paranasal Sinuses: The visualized aerated spaces are clear. Foreign Bodies: No radiopaque foreign bodies. Other Findings: None. IMPRESSION: No acute fracture or traumatic malalignment in the cervical spine. No acute facial bone fracture. Reviewed, dictated and finalized at location K. IMPRESSION: No acute fracture or traumatic malalignment in the cervical spine. No acute fac ial bone fracture.
--- NOTE | ~2022-05-04 | XR_ITS ---
EXAM: XR wrist LT 2V DATE: 05/04/2022 13:55 HISTORY: Fall. cannot extend arm. limited movement . COMPARISON: None available. FINDINGS: Decreased mineralization. No fracture or dislocation. No lytic or blastic lesion. Scattere d degenerative changes. No erosion or periosteal change. Soft tissues within normal limits. IMPRESSION: No acute osseous finding in the left wrist. Reviewed, dictated and finalized at location K.
[2022-05-04 12:59] VITALS: BP 108/80; PULSE 88; RESP 20; TEMP 36.6; O2SAT 96
--- NOTE | 2022-05-04 13:06 | ECG_ITS ---
Measurements Intervals [place] Rate: 89 P: 48 MI: 140 QRS: 60 QRSD: 84 T: 68 QT: 369 QTc: 451 Interpretive Statements SINUS RHYTHM LOW QRS VOLTAGE IN LIMB LEADS BASELINE ARTIFACT- I, III, AVR, AVL, AVF, V3-V6 BORDERLINE ECG Electronically Signed On 05-04-2022 23:30:15 CDT by Austin Arguelles D.O.
[2022-05-04 13:20] VITALS: BP 111/20; PULSE 100; RESP 20; O2SAT 99
[2022-05-04 14:00] VITALS: BP 111/80; PULSE 70; RESP 16; O2SAT 100
[2022-05-04 14:10] LABS: Basophils Absolute Auto 0.01 K/mm3 (0.00-0.10); Basophils Percent Auto 0.1 % (0.0-1.0); Eosinophils Absolute Auto 0.02 K/mm3 (0.02-0.50); Eosinophils Percent Auto 0.3 % (1.0-6.0); Hematocrit 33.6 % (35.0-42.0); Hemoglobin 11.3 g/dL (11.7-13.8); Immature Granulocyte Absolute 0.02 K/mm3 (0.00-0.00); Immature Granulocyte Percent A 0.3 % (0.0-0.0); Lymphocytes Absolute Auto 0.57 K/mm3 (1.10-4.50); Lymphocytes Percent Auto 7.6 % (18.0-42.0); Mean Corpuscular HGB Conc 33.6 g/dL (32.0-36.0); Mean Corpuscular Hemoglobin 31.1 pg (27.0-31.0); Mean Corpuscular Volume 92.6 fL (78.0-102.0); Mean Platelet Volume 8.3 fl (9.2-11.8); Monocytes Absolute Auto 0.55 K/mm3 (0.10-0.90); Monocytes Percent Auto 7.3 % (2.0-11.0); Neutrophils Absolute Auto 6.3 K/mm3 (1.7-7.2); Neutrophils Percent Auto 84.4 % (50.0-70.0); Platelet Count Result 248 K/mm3 (150-420); Red Blood Count 3.63 M/mm3 (4.20-5.40); Red Cell Distribution Width 13.1 % (11.6-14.4); White Blood Count 7.5 K/mm3 (4.8-10.8)
--- NOTE | 2022-05-04 14:14 | PC.NURSE ---
patient in CT & radiology. unable to get medications given, MD aware late.
[2022-05-04 14:21] LABS: Partial Thromboplastin Time 27.3 SEC (23.90-30.70); Prothrombin Time 11.4 Seconds (9.50-12.10)
[2022-05-04 14:25] LABS: Alanine Aminotransferase 14 U/L (14-59); Albumin Level 3.1 g/dL (3.4-5.0); Alkaline Phosphatase 116 U/L (46-116); Anion Gap 7 mmol/L (8-16); Aspartate Amino Transferase 12 U/L (15-37); Bilirubin,Total 0.6 mg/dL (0.00-1.00); Blood Urea Nitrogen 12 mg/dL (7-18); Calcium 9.1 mg/dL (8.5-10.1); Carbon Dioxide 28 mmol/L (21-32); Chloride 95 mmol/L (98-108); Estimated CRCL calculation 62 ml/min; Estimated Glomerular Filt Rate > 60; Glucose 107 mg/dL (70-99); Osmolality Calculated 269 mOsm/kg (285-295); Potassium 3.8 mmol/L (3.5-5.1); Sodium 130 mmol/L (136-145); Total Protein 6.3 g/dL (6.4-8.2); Troponin I 7.6 ng/L (0.00-60.4)
[2022-05-04] MEDS: SODIUM CHLORIDE 0.9% IV 1,000 ML 999 ML IV CONT (14:25)
[2022-05-04] MEDS: HYDROcodone/acetaminophen (*CRX) 5-325 MG TABLET 1 TAB PO (14:25)
[2022-05-04 14:28] LABS: Lipase 25 U/L (73-393)
--- NOTE | 2022-05-04 14:42 | ED.GENADULT ---
HPI - General Adult General Chief complaint: Fall Stated complaint: ambulance History of Present Illness HPI narrative: This is a 76-year-old female with a history of normal-pressure hydrocephalus with shunt, presenting to the ED after a fall. Patient is at 10:30 a.m. she came out of the bathtub. She then fell forward and hit her chin on the sink. Since then she has been having pain in her left chest wall and severe pain in her left arm. The patient is unsure if she lost consciousness before or after the fall. While patient is complaint chest wall pain she is not complaining of difficulty breathing, abdominal pain, headache. She does have severe pain and weakness in her left arm. She denies numbness tingling weakness any other extremity. She denies use of blood thinners. Related Data Home Medications Medication Instructions Recorded Confirmed calcium carbonate 500 mg calcium 500 mg PO DAILY 09/09/21 05/04/22 (1,250 mg) tablet (Calcium 500) cholecalciferol (vitamin D3) 250 250 mcg PO DAILY 09/09/21 05/04/22 mcg (10,000 unit) capsule meclizine 25 mg tablet 25 mg PO TID PRN Dizziness 09/09/21 05/04/22 ondansetron 4 mg disintegrating 4 mg PO Q6H 09/09/21 05/04/22 tablet Allergies Allergy/AdvReac Type Severity Reaction Status Date / Time epinephrine Allergy Severe SHAKINESS Verified 04/03/22 17:11 IVP DYE Allergy Severe RESP ARREST Uncoded 04/03/22 17:11 Contrast Media Allergy Unknown IVP DYE = Uncoded 04/03/22 17:11 RESP ARREST Review of Systems Constitutional: Constitutional: Denies chills Eyes: Eyes: Denies change in vision ENT: Denies dysphagia Cardiovascular: Cardiovascular: Reports chest pain Respiratory: Respiratory: Denies dyspnea Gastrointestinal: Gastrointestinal: Denies abdominal pain Genitourinary: Genitourinary: Denies abnormal vaginal bleeding Musculoskeletal: Musculoskeletal: Denies back pain Integumentary/Breasts: Skin/Breast: Denies rash Neurologic: Denies confusion Psychiatric: Psychiatric: Denies anxiety Endocrine: Endocrine: Denies excessive sweating Hematologic/Lymphatic: Hematologic/Lymphatic: Denies easy bleeding Allergic/Immunologic: Allergic/Immunologic: Denies lip swelling PMFSH Past Medical History Medical History (Updated 05/04/22 @ 16:22 by Pawan Edward MD) COPD (chronic obstructive pulmonary disease) Hypertension Meniere disease Normal pressure hydrocephalus Surgical History Surgical History (Updated 05/04/22 @ 16:11 by Pawan Edward MD) S/P KOSHER SEALER shunt Family History Family History Other Cerebrovascular accident Diabetes mellitus Family history of mental disorder Hypertension Social History Social History Smoking status: Former smoker Tobacco type: cigarettes Smoking end date: 10/19/10 Alcohol intake: current Drinks per week: 2 Substance use: never Substance use type: does not use Spiritual care concerns: No Exam Narrative: Hard of hearing. Const: General: alert Orientation/consciousness: patient oriented x3 HENMT: Head: normal to inspection Ears: external ears normal General nose exam: Epistaxis present ( Dried blood in the right ear. No evidence of septal hematoma.) Other: Bruising to the patient's chin. Eyes: Conjunctivae: conjunctivae normal Pupils: Equal, round and reactive pupils present Neck: Neck: normal visual inspection Other: C-collar in place Chest: Chest palpation & inspection: tenderness ( tenderness palpation over the left lateral ribcage.) Resp: Effort & Inspection: normal respiratory effort, not labored and no retractions Auscultation: no crackles and no rales Cardio: Rate: regular rate Rhythm: regular rhythm GI: GI Palp: Yes Soft to palpation, No Tenderness to palpation present (GI) and No Guarding due to palpation present (GI) Back/Spine/Pelvis:
[2022-05-04 14:46] LABS: Add Urine Microscopic? YES; Bilirubin Urine Negative (Negative); Blood Urine Negative (Negative); Color Urine Light Yellow (Yellow); Glucose Urine UA Negative (Negative); Ketones Urine Negative (Negative); Leukocyte Esterase Ur Negative LEU/UL (Negative); Nitrate Urine Positive (Negative); Protein Urine Negative (Negative); Urobilinogen Urine 0.2 mg/dL (0.2-1.0)
[2022-05-04 14:50] LABS: NT Pro B Type Natriuretic Pept 310 pg/mL (0-125)
[2022-05-04 15:00] VITALS: BP 120/60; PULSE 80; RESP 20; TEMP 36.6; O2SAT 99
[2022-05-04 15:02] LABS: Appearance Urine Cloudy (Clear); Bacteria Urine 4+ /hpf; Squamous Epithelial Cell Urine None seen /hpf (Few); WBC Clumps Urine Present /hpf; WBC Urine 0-3 /hpf (0-3)
[2022-05-04 16:24] LABS: SARS-CoV-2 Ag Negative (Negative)
[2022-05-04 16:29] VITALS: BP 110/60; PULSE 70; RESP 16; TEMP 36.6; O2SAT 96
[2022-05-04 16:40] LABS: Troponin I 9.5 ng/L (0.00-60.4)
[2022-05-04] MEDS: MORPHINE SULFATE (*CRX) 4 MG/ML INJ IV PUSH (16:59)
[2022-05-04] MEDS: ONDANSETRON INJ 4 MG/2 ML VIAL IV PUSH (16:59)
[2022-05-04 17:17] VITALS: BP 106/70; PULSE 80; RESP 16; O2SAT 99
== END 2022-05-04 16:50 | disposition short-term general hospital (02) ==
PROVIDERS: Emergency Provider Emergency Medicine; PCP Physician Assistant
DX: S22.39XA Fracture of one rib, unspecified side, initial encounter for closed fracture (principal); R29.6 Repeated falls; W19.XXXA Unspecified fall, initial encounter; J44.9 Chronic obstructive pulmonary disease, unspecified; I10 Essential (primary) hypertension; H81.09 Meniere's disease, unspecified ear; Z87.891 Personal history of nicotine dependence; R82.90 Unspecified abnormal findings in urine; Z20.822 Contact with and (suspected) exposure to COVID-19
CPT/HCPCS: 36415; 70450; 70486; 71045; 71250; 72125; 73030; 73070; 73100; 80053; 81001; 83690; 83880; 84484; 85025; 85610; 85730; 87077; 87086; 87088; 87186; 87426; 93005; 96361; 96374; 96375; 99285; A9270; C9803; J2270; J2405; J7030; L0150

== ENCOUNTER 2022-06-11 17:27 | Inpatient (IN) | payer MEDICARE, SELFPAY ==
[2022-06-11] VITALS (13 sets, daily range): BP systolic 77–115; BP diastolic 47–82; PULSE 80–107; RESP 16–20; TEMP 36.4–36.5; O2SAT 88–98; BMI 24.4
--- NOTE | ~2022-06-11 | CT_ITS ---
EXAMINATION: CT cervical spine wo con DATE: 06/11/2022 18:41 INDICATION: falls TECHNIQUE: Computed tomography (CT) of the cervical spine was performed without intravenous contrast. Automated exposure control and iterative reconstruction technique were employed. The dose-length pro duct was 681.00 mGy-cm. COMPARISON: 05/04/2022 FINDINGS: Vertebral Body Alignment: Stable grade 1 anterolisthesis of C3 on C4. Craniocervical and atlantoaxial alignment: Moderate degenerative change with pannus. Alignment intact . Osseous structures/fracture: No evidence of a lytic or blastic process in the visualized spine. No e vidence of acute fracture. Cervical soft tissues: The paraspinal soft tissues planes are maintained. Mild biapical pleural scarr ing. Degenerative changes: Degenerative disc disease and facet arthropathy, without severe neural central canal narrowing. Multilevel severe bilateral neural foraminal narrowing. IMPRESSION: No acute fracture or traumatic malalignment in the cervical spine. Reviewed, dictated and finalized at location K.
--- NOTE | ~2022-06-11 | XR_ITS ---
EXAMINATION: XR chest 1V portable Exam Date/Time: 06/11/2022 18:35 CDT HISTORY: chest pain Comparison: None available. RESULT: Lines, tubes, and devices: Shunt tubing traverses the right chest terminating in the right lower tho rax. Right shoulder arthroplasty. Lungs and pleura: Unchanged atelectasis/scar in the right lung base, with chronic pleural blunting a nd small effusion. Cardiomediastinal silhouette: Stable. Other: No acute osseous or upper abdominal finding. IMPRESSION: No acute cardiopulmonary process. Reviewed, dictated and finalized at location K.
--- NOTE | ~2022-06-11 | CT_ITS ---
EXAMINATION: CT brain wo con DATE: 06/11/2022 18:41 INDICATION: multiple falls . TECHNIQUE: Computed tomography (CT) of the head was performed without intravenous contrast. The mA wa s adjusted according to patient size. Iterative reconstruction technique was employed. The dose-lengt h product was 681.00 mGy-cm. COMPARISON: 05/04/2022 FINDINGS: No acute intracranial hemorrhage or extra-axial fluid collection. Stable enlargement of the lateral and third ventricles. No mass or herniation. No acute ischemic infarct. Unremarkable dural venous sinus attenuation. No acute osseous abnormality. The aerated spaces are clear. Right frontal approach ELECTRONIC WIRER shunt terminating in the right lateral ventricle, with catheter tract encep halomalacia in the right frontal lobe. Mild scattered white matter change. Atherosclerotic intracrani al calcification. IMPRESSION: No acute intracranial process. Reviewed, dictated and finalized at location K.
--- NOTE | ~2022-06-11 | CT_ITS ---
CT OF PELVIS EXAMINATION: CT pelvis wo con DATE: 06/11/2022 18:41 INDICATION: Fall. TECHNIQUE: Computed tomography (CT) of the pelvis was performed without intravenous contrast. Automat ed exposure control and iterative reconstruction technique were employed. The dose-length product was 681.00 mGy-cm. COMPARISON: CT abdomen pelvis 12/14/2020. FINDINGS: Limitations: None Bones: Decreased mineralization. No fracture or dislocation. Mild degenerative changes in the bilater al hips. Soft Tissues:The soft tissues appear within normal limits. No evidence of mass or fluid collection. Multiple bowel anastomoses in the lower abdomen. Atherosclerotic calcifications. Fluid: No significant fluid within the joint capsule or surrounding bursal spaces. IMPRESSION: No acute osseous finding in the pelvis. Reviewed, dictated and finalized at location K.
--- NOTE | 2022-06-11 18:06 | ECG_ITS ---
Measurements Intervals [place] Rate: P: MD: QRS: QRSD: T: QT: QTc: Interpretive Statements SINUS TACHYCARDIA POOR R-WAVE PROGRESSION BASELINE ARTIFACT BORDERLINE ECG NO PREVIOUS TRACING AVAILABLE FOR COMPARISON Electronically Signed On 06-12-2022 14:58:05 CDT by Darci Christiansen M.D.
[2022-06-11] MEDS: SODIUM CHLORIDE 0.9% IV 1,000 ML 999 ML IV CONT ×2 (18:15→22:31)
[2022-06-11 18:16] LABS: Base Excess ABG 4.2 mmol/L (0-2); HCO3 ABG 29.5 mmol/L (23-29); Oxygen Content ABG 16.2 %vol (16.0-22.0); Oxyhemoglobin 96.1 % (94-100); PCO2 ABG 46.8 mmHg (35-45); PO2 ABG 109.7 mmHg (75-85); Total Hemoglobin 11.9 g/dL (12.0-18.0); pH ABG 7.42 (7.35-7.45)
[2022-06-11 18:17] LABS: Device NASAL CANNULA; Modified Allen's Test Pass; Site Drawn RIGHT RADIAL
[2022-06-11 18:18] LABS: Basophils Absolute Auto 0.02 K/mm3 (0.00-0.10); Basophils Percent Auto 0.2 % (0.0-1.0); Eosinophils Absolute Auto 0.02 K/mm3 (0.02-0.50); Eosinophils Percent Auto 0.2 % (1.0-6.0); Hematocrit 35.4 % (35.0-42.0); Hemoglobin 11.3 g/dL (11.7-13.8); Immature Granulocyte Absolute 0.05 K/mm3 (0.00-0.00); Immature Granulocyte Percent A 0.5 % (0.0-0.0); Lymphocytes Absolute Auto 0.74 K/mm3 (1.10-4.50); Lymphocytes Percent Auto 7.8 % (18.0-42.0); Mean Corpuscular HGB Conc 31.9 g/dL (32.0-36.0); Mean Platelet Volume 8.7 fl (9.2-11.8); Monocytes Absolute Auto 0.55 K/mm3 (0.10-0.90); Monocytes Percent Auto 5.8 % (2.0-11.0); Neutrophils Absolute Auto 8.1 K/mm3 (1.7-7.2); Neutrophils Percent Auto 85.5 % (50.0-70.0); Platelet Count Result 249 K/mm3 (150-420); Red Blood Count 3.65 M/mm3 (4.20-5.40); Red Cell Distribution Width 13.9 % (11.6-14.4); White Blood Count 9.5 K/mm3 (4.8-10.8)
[2022-06-11 18:38] LABS: Alanine Aminotransferase 11 U/L (14-59); Albumin Level 2.8 g/dL (3.4-5.0); Alkaline Phosphatase 88 U/L (46-116); Anion Gap 2 mmol/L (8-16); Aspartate Amino Transferase 10 U/L (15-37); Bilirubin,Total 0.3 mg/dL (0.00-1.00); Blood Urea Nitrogen 29 mg/dL (7-18); Calcium 9.5 mg/dL (8.5-10.1); Carbon Dioxide 31 mmol/L (21-32); Chloride 101 mmol/L (98-108); Estimated Glomerular Filt Rate 39; Glucose 120 mg/dL (70-99); Osmolality Calculated 284 mOsm/kg (285-295); Potassium 4.2 mmol/L (3.5-5.1); Sodium 134 mmol/L (136-145); Total Protein 6.2 g/dL (6.4-8.2); Troponin I 8.7 ng/L (0.00-60.4)
[2022-06-11 18:41] LABS: Lactic Acid Reflex 2.5 mmol/L (0.4-2.0)
--- NOTE | 2022-06-11 18:43 | ED.WEAKNESS ---
HPI - Weakness General Chief complaint: Weakness Stated complaint: amb Time Seen by Provider: 06/11/22 17:31 Source: patient, EMS and RN notes reviewed Mode of arrival: EMS Limitations: no limitations History of Present Illness Complaint: generalized weakness and difficulty walking Onset (ago): day(s) (2) Duration: progressively worsening Location: generalized Migration: none Severity: moderate Relieving factors: none Exacerbating factors: movement and exertion Related Data Home Medications Medication Instructions Recorded Confirmed calcium carbonate 500 mg calcium 500 mg PO DAILY 09/09/21 06/11/22 (1,250 mg) tablet (Calcium 500) cholecalciferol (vitamin D3) 250 250 mcg PO DAILY 09/09/21 06/11/22 mcg (10,000 unit) capsule meclizine 25 mg tablet 25 mg PO TID PRN Dizziness 09/09/21 06/11/22 ondansetron 4 mg disintegrating 4 mg PO Q6H 09/09/21 06/11/22 tablet Allergies Allergy/AdvReac Type Severity Reaction Status Date / Time epinephrine Allergy Severe SHAKINESS Verified 04/03/22 17:11 IVP DYE Allergy Severe RESP ARREST Uncoded 04/03/22 17:11 Contrast Media Allergy Unknown IVP DYE = Uncoded 04/03/22 17:11 RESP ARREST Review of Systems Review of Systems: All systems reviewed & are unremarkable except as noted in HPI and below Constitutional: Constitutional: Reports no additional constitutional complaints Eyes: Eyes: Reports no additional eye complaints ENT: Reports system reviewed and no additional complaints, except as documented Cardiovascular: Cardiovascular: Reports no additional cardiovascular complaints Respiratory: Respiratory: Reports no additional respiratory complaints Gastrointestinal: Gastrointestinal: Reports no additional gastrointestinal complaints Genitourinary: Genitourinary: Reports no additional female genitourinary complaints Musculoskeletal: Musculoskeletal: Reports no additional musculoskeletal complaints Integumentary/Breasts: Skin/Breast: Reports system reviewed and no additional complaints, except as docu Neurologic: Reports system reviewed and no additional complaints, except as documented and Reports weakness Psychiatric: Psychiatric: Reports no additional psychiatric complaints Endocrine: Endocrine: Reports no additional endocrine complaints Hematologic/Lymphatic: Hematologic/Lymphatic: Reports no additional hematologic/lymphatic complaints Allergic/Immunologic: Allergic/Immunologic: Reports no additional allergic/immunologic complaints PMFSH Past Medical History Medical History COPD (chronic obstructive pulmonary disease) Hypertension Meniere disease Normal pressure hydrocephalus Weakness Surgical History Surgical History S/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 Family History Family History Other Cerebrovascular accident Diabetes mellitus Family history of mental disorder Hypertension Social History Social History Smoking status: Former smoker Tobacco type: cigarettes Smoking end date: 10/19/10 Alcohol intake: current Drinks per week: 2 Substance use: never Substance use type: does not use Spiritual care concerns: No Exam Const: General: no acute distress Nutritional Appearance: thin Orientation/consciousness: patient oriented x3 Limitations: no limitations HENMT: Head: normal to inspection Ears: external ears normal, TM's normal bilaterally and EAC's normal General nose exam: Normal external nose present and Normal nares present Face and sinus: normal facial exam and sinuses nontender Mouth: Yes Normal oral and palatal mucosa present and Yes moist mucous membranes Teeth and gingiva: dentition normal Throat: posterior oropharynx normal Eyes: Conjunctivae: conjunctivae normal Pupils: Equal, round and reactive pupils
[2022-06-11 18:47] LABS: Ethanol < 3 mg/dL (0-6)
--- NOTE | 2022-06-11 19:10 | PC.NURSE ---
pt resting per cot. call estrada in reach. report to AILYN Smith
--- NOTE | 2022-06-11 20:30 | PC.NURSE ---
pt ambulated approximately 20ft with walker and staff standing by. pt was unsteady while ambulating and had to be held steady by staff. pt returned to room. pt's oxygenation dropped to 89% on room while ambulating. pt placed on NC 1L oxygen
[2022-06-11] MEDS: SODIUM CHLORIDE 0.9% IV 1,000 ML 150 ML (20:38)
[2022-06-11 20:51] LABS: Appearance Urine Clear (Clear); Bilirubin Urine Negative (Negative); Color Urine Light Yellow (Yellow); Glucose Urine UA Negative (Negative); Ketones Urine Trace (Negative); Leukocyte Esterase Ur 1+ (Negative); Nitrate Urine Negative (Negative); Protein Urine Negative (Negative); Specific Grav Ur 1.025 (1.010-1.020); Urobilinogen Urine 0.2 mg/dL (0.2-1.0)
[2022-06-11 20:59] LABS: Amphetamine Screen Urine Negative (Negative); Barbiturate Screen Urine Negative (Negative); Benzodiazepines Screen Urine Negative (Negative); Cannabinoid Screen Urine Negative (Negative); Cocaine Screen Urine Negative (Negative); Methadone Screen Urine Negative (Negative); Opiate Screen Urine Positive (Negative); Phencyclidine Screen Urine Negative (Negative)
[2022-06-11 21:11] LABS: Add Urine Microscopic? YES; Bacteria Urine 2+ /hpf; Blood Urine Trace-Intact (Negative); Budding Yeast Urine Present /hpf; RBC Urine 0-2 /hpf (0-2); Squamous Epithelial Cell Urine Few /hpf (Few); WBC Urine 21-30 /hpf (0-3)
[2022-06-11 21:15] LABS: Reflex Lactic Acid Yes or No Add Lactic
--- NOTE | 2022-06-11 21:25 | ECG_ITS ---
Measurements Intervals [place] Rate: 84 P: 85 ID: [id number] QRS: 79 QRSD: 67 T: 61 QT: 365 QTc: 432 Interpretive Statements SINUS RHYTHM LOW QRS VOLTAGE IN PRECORDIAL LEADS BASELINE ARTIFACT NONSPECIFIC ST ABNORMALITY BORDERLINE ECG COMPARED TO ECG 05/04/2022 13:30:17 NO SIGNIFICANT CHANGES Electronically Signed On 06-12-2022 14:59:34 CDT by Darci Christiansen M.D.
[2022-06-11 21:33] LABS: D Dimer 0.42 mg/L (0.19-0.50)
--- NOTE | 2022-06-11 22:10 | PC.NURSE ---
Patient admitted to room 207 from ER. Patient on O2 @ 1 lpm/nc. No SOB noted/reported. Lungs clear bilaterally. SpO2 @ 96%. O2 turned off. After 20 minutes patient's SpO2 @ 95% on room air. Will continue to monitor. Patient has sling with her and when asked what it was for patient said she broke her left arm about a month ago and doesn't know if she's still supposed to be wearing the sling or not. Patient asked nurse if she still needed to be wearing the sling. Asked if patient had been back to ortho Dr and patient said she hasn't had a ride. Nurse explained to patient that neither the nurses or the Dr at this hospital can answer that question because of not being ortho Dr. Patient refused to put sling on. Patient is using left arm a lot, even leaning on both arms to pull herself up in the bed and has no complaints of pain. When nurse asked for patient's right arm to do BP, patient raised arm from the elbow and said she had surgery on her right shoulder several years ago and it never got exercised like it should have and now she can't move it. Asked patient who helps her at home and she said her helper's hours got messed up while she was in the hospital after her fall and breaking her arm. Patient said that helper still comes and does a few things for her but nothing officially and that usually she's just on her own. Patient states she has a daughter but they haven't spoken in years and she has no other help at home. Asked patient if she's considered going to an assisted living facility and she said she can't afford it.
--- NOTE | 2022-06-11 23:16 | ADMGEN ---
This patient, Bonita Modi, was admitted to 2nd Floor Room 207-2. Patient oriented to hospital policies and general routines including ID bracelet, bed and alarms, visiting hours, pain management, procedures, bathroom and other care routines, personal items, smoking policy, room service/diet, and visiting hours. Information on how to activate the Rapid Response Team has been discussed. Patient are encouraged to report perceived risks to care and to ask questions if they do not understand what they are told or what they should do.
[2022-06-12] VITALS: BP 111/75; PULSE 78; RESP 18; TEMP 36.4; O2SAT 95
[2022-06-12 04:00] VITALS: PULSE 74
[2022-06-12 05:07] LABS: Hematocrit 29.8 % (35.0-42.0); Hemoglobin 9.6 g/dL (11.7-13.8); Mean Corpuscular HGB Conc 32.2 g/dL (32.0-36.0); Mean Corpuscular Hemoglobin 31.4 pg (27.0-31.0); Mean Corpuscular Volume 97.4 fL (78.0-102.0); Mean Platelet Volume 8.8 fl (9.2-11.8); Platelet Count Result 204 K/mm3 (150-420); Red Blood Count 3.06 M/mm3 (4.20-5.40); White Blood Count 6.6 K/mm3 (4.8-10.8)
[2022-06-12 05:24] LABS: Alanine Aminotransferase 8 U/L (14-59); Albumin Level 2.3 g/dL (3.4-5.0); Alkaline Phosphatase 73 U/L (46-116); Anion Gap 4 mmol/L (8-16); Aspartate Amino Transferase 13 U/L (15-37); Bilirubin,Total 0.3 mg/dL (0.00-1.00); Blood Urea Nitrogen 21 mg/dL (7-18); Calcium 8.6 mg/dL (8.5-10.1); Carbon Dioxide 28 mmol/L (21-32); Chloride 105 mmol/L (98-108); Estimated CRCL calculation 57 ml/min; Estimated Glomerular Filt Rate > 60; Glucose 85 mg/dL (70-99); Magnesium 1.3 mg/dL (1.8-2.4); Osmolality Calculated 286 mOsm/kg (285-295); Potassium 3.9 mmol/L (3.5-5.1); Sodium 137 mmol/L (136-145); Total Protein 5.2 g/dL (6.4-8.2)
[2022-06-12 07:42] VITALS: BP 129/66; PULSE 76; PULSE 82; RESP 16; TEMP 37; O2SAT 91
--- NOTE | 2022-06-12 07:58 | PC.NURSE ---
Per patient, she has just gotten out of a nursing home facility that she was in for rehab x 3 days ago. Patient stated that she used up her insurance and therefore, she was getting no more rehab. Patient stated that she is [place] and her hearing aid is broken at this time. 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
[2022-06-12] MEDS: ENOXAPARIN 40 MG/0.4 ML SYRINGE SUB-Q (08:31)
[2022-06-12] MEDS: SACCHAROMYCES BOULARDII 250 MG CAPSULE PO (08:32)
[2022-06-12] MEDS: PANTOPRAZOLE SODIUM IV 40 MG VIAL IV PUSH (08:32)
[2022-06-12] MEDS: CALCIUM CARBONATE (TUMS) 500 MG (200 MG ELEMENTAL) PO (08:32)
--- NOTE | 2022-06-12 08:32 | PM.IMHP ---
H&P: HPI History of Present Illness Date/Time: 06/12/22 08:32 Chief Complaint: UTI ,multiple falls, self-neglect , weakness Narrative: This is a 77-year-old female that presented to the emergency department after multiple falls and complaints of weakness. Patient has a past medical history of COPD, hypertension, M?ni?re's disease, and weakness. Patient notes that for the last 6 months she has been falling multiple times due to her M?ni?re's disease. Patient notes that she has also injured her head on a couple occasions but this particular fall she did not. Patient notes that she had not had a bowel movement for several days in felt the urge to have a bowel movement and attempted to get up and go to the restroom when she fell. Patient does have a walker at home but does not utilize it. Patient notes that her walker is too big for her home and she is unable to use it. Patient also notes that she has not been eating properly because she cannot get to her food ,she is unable to care for herself. Patient does have 2 people that occasionally come to her home and assist her. Patient notes that this particular day that she fell she stayedon the floor for approximately 30 minutes and hit her life alert to call for help. Discussed assisted living and [facility] placement with patient. Patient notes that she cannot afford assisted living and she refuses to go to a chcf. Patient notes that she will just go home and . Once again I recommended placement for patient because she is unable to care for herself and she has poor support. Put in a referral for care coordination. Vital signs 129/66, 76, 16, 98.6, 91% on room air. ABG pH 7.42, CO2 46.8, O2 109.7, bicarb 29.5, sodium 134, potassium 4.2, BUN 29, creatinine 1.34, glucose 120, lactic acid 2.5, total bilirubin 0.3, AST 18, ALT 11, troponin 8.7, UA positive for ketone blood, budding yeast ,bacteria and leukocytes. Positive for opiates. CT of the head chest cervical spine and pelvis no acute findings noted EKG sinus rhythm with a heart rate of 84. Patient does complain of a slight headache she also noted that she had a difficult time sleeping. The patient denies SOB, CP, palpitation, extremity numbness, diarrhea, chills, or fever. Review of Systems Review of Systems: A 14 organ system Review of Systems was performed and pertinent positives included in the HPI, otherwise remaining ROS is negative. 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 Family History Family History (Updated 06/11/22 @ 22:38 by Yue Kumar RN) Mother Cerebrovascular accident Other Diabetes mellitus Family history of mental disorder Hypertension Social History Social History Smoking packs per day: 2 Smoking cigarettes per day: 40.0 Years smoked: 40 Smoking pack-years: 80.00 Smoking status: Former smoker Tobacco type: cigarettes Smoking end date: 10/19/06 Alcohol intake: former Drinks per week: 2 Substance use: never Substance use type: does not use Spiritual care concerns: No Meds Home Medications and Allergies Home Medications Medication Instructions Recorded Confirmed Type calcium carbonate 500 mg calcium 500 mg PO DAILY 09/09/21 06/11/22 History (1,250 mg) tablet (Calcium 500) cholecalciferol (vitamin D3) 250 250 mcg PO DAILY 09/09/21 06/11/22 History mcg (10,000 unit) capsule meclizine 25 mg tablet 25 mg PO TID PRN Dizziness 09/09/21 06/11/22 History ondansetron 4 mg disintegrating 4 mg PO Q6H 09/09/21 06/11/22 History tablet denosumab 60 mg/mL subcutaneous 60 mg subcut [id number] #1 mL 09/30/21 06/11/22 Rx syringe (
[2022-06-12] MEDS: CALCIUM CARBONATE (OSCAL) 500 MG TABLET PO (08:33)
[2022-06-12] MEDS: CIPROFLOXACIN 500 MG TAB PO (08:33)
[2022-06-12] MEDS: MAGNESIUM OXIDE 400 MG TABLET PO (08:33)
[2022-06-12] MEDS: FLUoxetine HCL 20 MG CAPSULE PO (08:38)
[2022-06-12] MEDS: SERTRALINE HCL 25 MG TABLET PO (08:39)
[2022-06-12] MEDS: BUDESONIDE/FORMOTEROL (*SP) 160-4.5 MCG 6 GM INH 2 PUFF INHALATION (09:41)
[2022-06-12] MEDS: predniSONE 20 MG TABLET 40 MG PO (09:44)
[2022-06-12] MEDS: FLUCONAZOLE 150 MG TABLET PO (09:44)
[2022-06-12 12:00] VITALS: PULSE 88
--- NOTE | 2022-06-12 13:33 | PC.NURSE ---
1250 patient dc from acute bed and will be [facility] [place]
== END 2022-06-12 12:50 | disposition swing bed (61) | DRG 641 ==
LOC: CHSED 17:58 → CHS2ND 21:34
PROVIDERS: Nurse Practitioner; Admitting Provider Internal Medicine; Emergency Provider Emergency Medicine; PCP Physician Assistant; Visit Provider Internal Medicine
DX: J44.9 Chronic obstructive pulmonary disease, unspecified (principal); I10 Essential (primary) hypertension; H81.09 Meniere's disease, unspecified ear; Z98.2 Presence of cerebrospinal fluid drainage device; Z87.891 Personal history of nicotine dependence; Z79.899 Other long term (current) drug therapy; E87.1 Hypo-osmolality and hyponatremia; E86.0 Dehydration; N17.9 Acute kidney failure, unspecified; B37.49 Other urogenital candidiasis; G91.2 (Idiopathic) normal pressure hydrocephalus; R53.1 Weakness; R29.6 Repeated falls; F41.9 Anxiety disorder, unspecified; F32.A Depression, unspecified
CPT/HCPCS: 36415; 36600; 70450; 71045; 72125; 72192; 80053; 80307; 81001; 82805; 83605; 83735; 84484; 85025; 85027; 85380; 87040; 87086; 87088; 93005; 96360; 97161; 99285; A9270; C9113; J0696; J1650; J7030; J7512

== ENCOUNTER 2022-06-12 12:51 | Inpatient (IN) | payer MEDICARE, MEDICAID, SELFPAY ==
--- NOTE | 2022-06-12 12:55 | PC.NURSE ---
Patient discharged from inpatient status and readmitted as a swing bed patient. Admission information reviewed with patient. Patient reoriented to hospital environment and use of bed and call light.
[2022-06-12 13:00] VITALS: O2SAT 94
[2022-06-12 13:10] VITALS: PULSE 89; RESP 16; O2SAT 89
[2022-06-12 13:34] VITALS: O2SAT 94; BMI 24.4
--- NOTE | 2022-06-12 13:57 | PC.NURSE ---
Patient was discharged from acute care at 1250 and readmitted as swing bed status at 1251.
--- NOTE | 2022-06-12 14:23 | PC.NURSE ---
IV site discontinued d/t patient now receiving PO ABT and new swing bed status. Patient tolerated well.
[2022-06-12 16:00] VITALS: BP 121/71; PULSE 86; RESP 16; TEMP 36.7; O2SAT 89
[2022-06-12] MEDS: HYDROcodone/acetaminophen (*CRX) 5-325 MG TABLET 1 TAB PO (16:04)
[2022-06-12] MEDS: CIPROFLOXACIN 500 MG TAB PO (20:12)
[2022-06-12] MEDS: DOCUSATE SODIUM 100 MG CAPSULE PO (20:13)
[2022-06-12] MEDS: LORazepam (*CRX) 0.5 MG TABLET PO (20:13)
[2022-06-13] VITALS: BP 102/56; PULSE 69; RESP 20; TEMP 36.1; O2SAT 94
[2022-06-13 07:44] VITALS: BP 137/74; PULSE 92; RESP 16; TEMP 36.6; O2SAT 94
--- NOTE | 2022-06-13 08:20 | PM.IMHP ---
H&P: HPI History of Present Illness Date/Time: 06/13/22 08:20 Chief Complaint: Weakness Narrative: This is a 77-year-old female that presented to the emergency department after multiple falls and complaints of weakness.? Patient has a past medical history of COPD, hypertension, M?ni?re's disease, and weakness.? Patient notes that for the last 6 months she has been falling multiple times due to her M?ni?re's disease.? Patient notes that she has also injured her head on a couple occasions but this particular fall she did not.? Patient notes that she had not had a bowel movement for several days in felt the urge to have a bowel movement and attempted to get up and go to the restroom when she fell.? Patient does have a walker at home but does not utilize it.? Patient notes that her walker is too big for her home and she is unable to use it.? Patient also notes that she has not been eating properly because she cannot get to her food ,she is unable to care for herself.? Patient does have 2 people that occasionally come to her home and assist her.? Patient notes that this particular day that she fell she stayedon the floor for approximately 30 minutes and hit her life alert to call for help.? Discussed assisted living and halfway placement with patient.? Patient notes that she cannot afford assisted living and she refuses to go to a halfway.? Patient notes that she will just go home and .? Once again I recommended placement for patient because she is unable to care for herself and she has poor support.? Put in a referral for care coordination.? Vital signs 129/66, 76, 16, 98.6, 91% on room air.? ABG pH 7.42, CO2 46.8, O2 109.7, bicarb 29.5, sodium 134, potassium 4.2, BUN 29, creatinine 1.34, glucose 120, lactic acid 2.5, total bilirubin 0.3, AST 18, ALT 11, troponin 8.7, UA positive for ketone blood, budding yeast ,bacteria and leukocytes.? Positive for opiates.? CT of the head chest cervical spine and pelvis no acute findings noted EKG sinus rhythm with a heart rate of 84.? Patient does complain of a slight headache she also noted that she had a difficult time sleeping.? The patient denies SOB, CP, palpitation, extremity numbness,? diarrhea, chills, or fever. Patient transition to our swing bed for PT/OT Review of Systems Review of Systems: A 14 organ system Review of Systems was performed and pertinent positives included in the HPI, otherwise remaining ROS is negative. 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 shunt Family History Family History (Updated 06/11/22 @ 22:38 by Yue Kumar RN) Mother Cerebrovascular accident Other Diabetes mellitus Family history of mental disorder Hypertension Social History Social History Smoking packs per day: 2 Smoking cigarettes per day: 40.0 Years smoked: 40 Smoking pack-years: 80.00 Smoking status: Former smoker Tobacco type: cigarettes Second hand tobacco smoke exposure: Yes Smoking end date: 10/19/06 Alcohol intake: current Drinks per week: 2 Substance use: never Substance use type: does not use Spiritual care concerns: No Meds Home Medications and Allergies Home Medications Medication Instructions Recorded Confirmed Type calcium carbonate 500 mg calcium 500 mg PO DAILY 09/09/21 06/12/22 History (1,250 mg) tablet (Calcium 500) cholecalciferol (vitamin D3) 250 250 mcg PO DAILY 09/09/21 06/12/22 History mcg (10,000 unit) capsule meclizine 25 mg tablet 25 mg PO TID PRN Dizziness 09/09/21 06/12/22 History ondansetron 4 mg disintegrating 4 mg PO Q6H 09/09/21 06/12/22 History tablet denosumab 60 mg/mL subcutaneous 60
[2022-06-13] MEDS: FLUoxetine HCL 20 MG CAPSULE PO (09:29)
[2022-06-13] MEDS: SERTRALINE HCL 25 MG TABLET PO (09:29)
[2022-06-13] MEDS: BUDESONIDE/FORMOTEROL (*SP) 160-4.5 MCG 6 GM INH 2 PUFF INHALATION ×2 (09:29→20:08)
[2022-06-13] MEDS: DOCUSATE SODIUM 100 MG CAPSULE PO ×2 (09:30→20:12)
[2022-06-13] MEDS: SACCHAROMYCES BOULARDII 250 MG CAPSULE PO ×2 (09:30→16:58)
[2022-06-13] MEDS: predniSONE 20 MG TABLET PO (09:30)
[2022-06-13] MEDS: CIPROFLOXACIN 500 MG TAB PO ×2 (09:31→20:11)
[2022-06-13] MEDS: CALCIUM CARBONATE (OSCAL) 500 MG TABLET PO (09:31)
[2022-06-13] MEDS: hydroCHLOROthiazide 25 MG TABLET PO (09:31)
[2022-06-13] MEDS: lisinopriL 20 MG TABLET PO (09:31)
[2022-06-13] MEDS: PANTOPRAZOLE SOD SESQUIHYDRATE 20 MG TAB PO (09:32)
[2022-06-13] MEDS: HYDROcodone/acetaminophen (*CRX) 5-325 MG TABLET 1 TAB PO (13:56)
[2022-06-13 16:00] VITALS: BP 94/67; PULSE 77; RESP 16; TEMP 36.6; O2SAT 93
[2022-06-13] MEDS: LORazepam (*CRX) 0.5 MG TABLET PO (20:12)
[2022-06-13] MEDS: traZODone HCL 50 MG TABLET PO (21:48)
--- NOTE | 2022-06-13 21:56 | PC.NURSE ---
Pt ambulated to the bathroom via walker, gait belt, and standby assist. Pt voided dark yellow urine that was slightly cloudy in appearance. Pt then returned back to bed. Pt did ambulate well and wiped herself independently and performed hand hygiene. Pt only lost balance once, but did regain it once stabilizing herself. Pt also independently brought her legs back up to bed. Pt did state that the Ativan she had used for sleep that worked last night did not work as well tonight. This RN then gave her a prn trazodone per request. Call light w/in reach; side railsx2; and night light on per pt safety.
[2022-06-13 23:01] VITALS: BP 94/56; PULSE 67; RESP 18; TEMP 36.9; O2SAT 93
--- NOTE | 2022-06-14 00:40 | PC.NURSE ---
Pt had incontinent void. Liz Elder RN assisted pt w/ambulating to the bathroom to change into a clean gown and depend. Blankets were also replaced w/clean, dry ones and pt returned to bed. Call light w/in reach; side railsx2; night light on for pt safety.
[2022-06-14] MEDS: LORazepam (*CRX) 0.5 MG TABLET PO ×2 (04:21→21:36)
[2022-06-14 08:00] VITALS: BP 80/51; PULSE 117; RESP 14; TEMP 36.2; O2SAT 93
[2022-06-14] MEDS: predniSONE 20 MG TABLET PO (08:15)
[2022-06-14] MEDS: SERTRALINE HCL 25 MG TABLET PO (09:01)
[2022-06-14] MEDS: BUDESONIDE/FORMOTEROL (*SP) 160-4.5 MCG 6 GM INH 2 PUFF INHALATION ×2 (09:01→21:34)
[2022-06-14] MEDS: FLUoxetine HCL 20 MG CAPSULE PO (09:01)
[2022-06-14] MEDS: SACCHAROMYCES BOULARDII 250 MG CAPSULE PO ×2 (09:01→17:22)
[2022-06-14] MEDS: DOCUSATE SODIUM 100 MG CAPSULE PO ×2 (09:02→21:35)
[2022-06-14] MEDS: lisinopriL 20 MG TABLET PO (09:02)
[2022-06-14] MEDS: CALCIUM CARBONATE (OSCAL) 500 MG TABLET PO (09:02)
[2022-06-14] MEDS: PANTOPRAZOLE SOD SESQUIHYDRATE 20 MG TAB PO (09:02)
[2022-06-14] MEDS: CIPROFLOXACIN 500 MG TAB PO ×2 (09:02→21:35)
[2022-06-14] MEDS: hydroCHLOROthiazide 25 MG TABLET PO (09:02)
[2022-06-14] MEDS: HYDROcodone/acetaminophen (*CRX) 5-325 MG TABLET 1 TAB PO (14:06)
[2022-06-14 16:40] VITALS: BP 107/63; PULSE 93; RESP 18; TEMP 36.2; O2SAT 92
[2022-06-14] MEDS: BENZONATATE 100 MG CAPSULE 200 MG PO (18:16)
[2022-06-14] MEDS: traZODone HCL 50 MG TABLET PO (21:35)
[2022-06-14 23:22] VITALS: BP 91/55; PULSE 73; RESP 16; TEMP 36.4; O2SAT 93
[2022-06-15 08:00] VITALS: BP 90/51; PULSE 103; RESP 16; TEMP 36.3; O2SAT 95
[2022-06-15] MEDS: predniSONE 20 MG TABLET PO (08:21)
[2022-06-15] MEDS: BENZONATATE 100 MG CAPSULE 200 MG PO ×3 (09:15→16:06)
[2022-06-15] MEDS: BUDESONIDE/FORMOTEROL (*SP) 160-4.5 MCG 6 GM INH 2 PUFF INHALATION ×2 (09:18→21:01)
[2022-06-15] MEDS: CIPROFLOXACIN 500 MG TAB PO ×2 (09:19→21:00)
[2022-06-15] MEDS: FLUoxetine HCL 20 MG CAPSULE PO (09:19)
[2022-06-15] MEDS: SERTRALINE HCL 25 MG TABLET PO (09:19)
[2022-06-15] MEDS: DOCUSATE SODIUM 100 MG CAPSULE PO ×2 (09:19→21:00)
[2022-06-15] MEDS: SACCHAROMYCES BOULARDII 250 MG CAPSULE PO ×2 (09:21→16:06)
[2022-06-15] MEDS: CALCIUM CARBONATE (OSCAL) 500 MG TABLET PO (09:21)
[2022-06-15] MEDS: PANTOPRAZOLE SOD SESQUIHYDRATE 20 MG TAB PO (09:21)
[2022-06-15 12:05] VITALS: BP 114/64; PULSE 85
[2022-06-15 16:15] VITALS: BP 109/67; PULSE 75; RESP 20; TEMP 37.3; O2SAT 91
[2022-06-15] MEDS: traZODone HCL 50 MG TABLET PO (21:00)
[2022-06-15] MEDS: LORazepam (*CRX) 0.5 MG TABLET PO (21:00)
[2022-06-15 23:15] VITALS: BP 99/64; PULSE 73; RESP 19; TEMP 36.9; O2SAT 94
[2022-06-16 08:00] VITALS: BP 123/81; PULSE 102; RESP 18; TEMP 36.8; O2SAT 93; O2SAT 96
[2022-06-16] MEDS: SERTRALINE HCL 25 MG TABLET PO (08:02)
[2022-06-16] MEDS: FLUoxetine HCL 20 MG CAPSULE PO (08:02)
[2022-06-16] MEDS: BENZONATATE 100 MG CAPSULE 200 MG PO ×3 (08:03→17:05)
[2022-06-16] MEDS: SACCHAROMYCES BOULARDII 250 MG CAPSULE PO ×2 (08:03→17:05)
[2022-06-16] MEDS: predniSONE 20 MG TABLET PO (08:03)
[2022-06-16] MEDS: hydroCHLOROthiazide 25 MG TABLET PO (08:04)
[2022-06-16] MEDS: DOCUSATE SODIUM 100 MG CAPSULE PO ×2 (08:04→20:48)
[2022-06-16] MEDS: CIPROFLOXACIN 500 MG TAB PO ×2 (08:04→20:48)
[2022-06-16] MEDS: CALCIUM CARBONATE (OSCAL) 500 MG TABLET PO (08:04)
[2022-06-16] MEDS: PANTOPRAZOLE SOD SESQUIHYDRATE 20 MG TAB PO (08:05)
[2022-06-16] MEDS: BUDESONIDE/FORMOTEROL (*SP) 160-4.5 MCG 6 GM INH 2 PUFF INHALATION ×2 (08:05→20:47)
[2022-06-16] MEDS: HYDROcodone/acetaminophen (*CRX) 5-325 MG TABLET 1 TAB PO ×3 (08:28→20:49)
[2022-06-16 16:00] VITALS: BP 94/69; PULSE 86; RESP 16; TEMP 36.6; O2SAT 91
[2022-06-16 19:41] VITALS: PULSE 86; RESP 16; O2SAT 93
[2022-06-16] MEDS: traZODone HCL 50 MG TABLET PO (20:48)
[2022-06-16] MEDS: LORazepam (*CRX) 0.5 MG TABLET PO (20:48)
[2022-06-16 23:34] VITALS: BP 101/63; PULSE 69; RESP 16; TEMP 36.7; O2SAT 93
--- NOTE | 2022-06-17 05:23 | PC.NURSE ---
Patient c/o cough and requesting a cough pill , Tessalon Norma med is scheduled, web content writer unable to comply with request, patient states understanding. Charge nurse updated on patient request for cough med, will update Nurse practitioner.
[2022-06-17 07:53] VITALS: BP 113/63; PULSE 74; RESP 16; TEMP 36.4; O2SAT 93
[2022-06-17] MEDS: FLUoxetine HCL 20 MG CAPSULE PO (08:13)
[2022-06-17] MEDS: BUDESONIDE/FORMOTEROL (*SP) 160-4.5 MCG 6 GM INH 2 PUFF INHALATION ×2 (08:13→20:35)
[2022-06-17] MEDS: SERTRALINE HCL 25 MG TABLET PO (08:13)
[2022-06-17] MEDS: BENZONATATE 100 MG CAPSULE 200 MG PO ×3 (08:14→16:41)
[2022-06-17] MEDS: HYDROcodone/acetaminophen (*CRX) 5-325 MG TABLET 1 TAB PO ×2 (08:14→16:41)
[2022-06-17] MEDS: CIPROFLOXACIN 500 MG TAB PO ×2 (08:15→20:38)
[2022-06-17] MEDS: CALCIUM CARBONATE (OSCAL) 500 MG TABLET PO (08:15)
[2022-06-17] MEDS: DOCUSATE SODIUM 100 MG CAPSULE PO ×2 (08:16→20:37)
[2022-06-17] MEDS: hydroCHLOROthiazide 25 MG TABLET PO (08:16)
[2022-06-17] MEDS: SACCHAROMYCES BOULARDII 250 MG CAPSULE PO ×2 (08:16→16:40)
[2022-06-17] MEDS: predniSONE 20 MG TABLET PO (08:16)
[2022-06-17] MEDS: PANTOPRAZOLE SOD SESQUIHYDRATE 20 MG TAB PO (08:17)
--- NOTE | 2022-06-17 12:28 | PC.NURSE ---
To clinic via wheel chair for office visit with dermatology
[2022-06-17] MEDS: traMADol HCL (*CRX) 25 MG TABLET PO ×2 (13:29→20:38)
--- NOTE | 2022-06-17 13:31 | PC.NURSE ---
Returned from clinic, given pain medication for shoulder pain
[2022-06-17 16:00] VITALS: BP 110/66; PULSE 78; RESP 16; TEMP 36.6; O2SAT 93
[2022-06-17 19:44] VITALS: PULSE 78; RESP 16; O2SAT 93
[2022-06-17] MEDS: traZODone HCL 50 MG TABLET PO (20:37)
[2022-06-17] MEDS: LORazepam (*CRX) 0.5 MG TABLET PO (20:37)
[2022-06-17] MEDS: guaiFENesin 12 HR 600 MG TABCR 1200 MG PO (23:44)
[2022-06-18] VITALS: BP 100/59; PULSE 78; RESP 16; TEMP 36.2; O2SAT 93
[2022-06-18 08:00] VITALS: BP 118/67; PULSE 85; RESP 16; TEMP 36.4; O2SAT 91
[2022-06-18] MEDS: predniSONE 20 MG TABLET PO (08:20)
[2022-06-18] MEDS: guaiFENesin 12 HR 600 MG TABCR 1200 MG PO ×2 (09:12→21:20)
[2022-06-18] MEDS: CALCIUM CARBONATE (OSCAL) 500 MG TABLET PO (09:12)
[2022-06-18] MEDS: DOCUSATE SODIUM 100 MG CAPSULE PO ×2 (09:12→21:20)
[2022-06-18] MEDS: BENZONATATE 100 MG CAPSULE 200 MG PO ×3 (09:12→17:21)
[2022-06-18] MEDS: CIPROFLOXACIN 500 MG TAB PO ×2 (09:13→21:20)
[2022-06-18] MEDS: SACCHAROMYCES BOULARDII 250 MG CAPSULE PO ×2 (09:13→17:21)
[2022-06-18] MEDS: FLUoxetine HCL 20 MG CAPSULE PO (09:13)
[2022-06-18] MEDS: SERTRALINE HCL 25 MG TABLET PO (09:13)
[2022-06-18] MEDS: PANTOPRAZOLE SOD SESQUIHYDRATE 20 MG TAB PO (09:13)
[2022-06-18] MEDS: hydroCHLOROthiazide 25 MG TABLET PO (09:13)
[2022-06-18] MEDS: BUDESONIDE/FORMOTEROL (*SP) 160-4.5 MCG 6 GM INH 2 PUFF INHALATION ×2 (09:14→21:18)
[2022-06-18] MEDS: HYDROcodone/acetaminophen (*CRX) 5-325 MG TABLET 1 TAB PO ×2 (12:49→21:21)
[2022-06-18 16:00] VITALS: BP 120/70; PULSE 64; RESP 18; TEMP 36.1; O2SAT 94
[2022-06-18] MEDS: traZODone HCL 50 MG TABLET PO (21:21)
[2022-06-18] MEDS: LORazepam (*CRX) 0.5 MG TABLET PO (21:21)
[2022-06-18 23:43] VITALS: BP 107/63; PULSE 72; RESP 16; TEMP 36.2; O2SAT 93
[2022-06-19 08:00] VITALS: BP 110/65; PULSE 70; RESP 16; TEMP 36.6; O2SAT 93
[2022-06-19] MEDS: predniSONE 20 MG TABLET PO (08:30)
[2022-06-19] MEDS: FLUoxetine HCL 20 MG CAPSULE PO (09:24)
[2022-06-19] MEDS: SACCHAROMYCES BOULARDII 250 MG CAPSULE PO ×2 (09:24→16:50)
[2022-06-19] MEDS: guaiFENesin 12 HR 600 MG TABCR 1200 MG PO ×2 (09:25→20:55)
[2022-06-19] MEDS: DOCUSATE SODIUM 100 MG CAPSULE PO ×2 (09:25→20:55)
[2022-06-19] MEDS: PANTOPRAZOLE SOD SESQUIHYDRATE 20 MG TAB PO (09:25)
[2022-06-19] MEDS: CALCIUM CARBONATE (OSCAL) 500 MG TABLET PO (09:25)
[2022-06-19] MEDS: hydroCHLOROthiazide 25 MG TABLET PO (09:25)
[2022-06-19] MEDS: BENZONATATE 100 MG CAPSULE 200 MG PO ×3 (09:26→16:50)
[2022-06-19] MEDS: SERTRALINE HCL 25 MG TABLET PO (09:26)
[2022-06-19] MEDS: BUDESONIDE/FORMOTEROL (*SP) 160-4.5 MCG 6 GM INH 2 PUFF INHALATION ×2 (09:26→20:54)
[2022-06-19] MEDS: CIPROFLOXACIN 500 MG TAB PO (09:26)
[2022-06-19 16:45] VITALS: BP 109/68; PULSE 73; RESP 18; TEMP 36.8; O2SAT 93
[2022-06-19] MEDS: BENZOCAINE/MENTHOL (*BKC) LOZENGE 1 LOZENGE PO (16:50)
[2022-06-19 19:40] VITALS: PULSE 73; RESP 18; O2SAT 93
[2022-06-19] MEDS: LORazepam (*CRX) 0.5 MG TABLET PO (20:54)
[2022-06-19] MEDS: traZODone HCL 50 MG TABLET PO (20:54)
[2022-06-19] MEDS: HYDROcodone/acetaminophen (*CRX) 5-325 MG TABLET 1 TAB PO (20:55)
[2022-06-20] VITALS: BP 133/73; PULSE 79; RESP 16; TEMP 36.6; O2SAT 93
[2022-06-20 08:00] VITALS: BP 135/70; PULSE 78; RESP 16; TEMP 36.8; O2SAT 97
[2022-06-20] MEDS: predniSONE 20 MG TABLET PO (08:35)
[2022-06-20] MEDS: CALCIUM CARBONATE (OSCAL) 500 MG TABLET PO (09:35)
[2022-06-20] MEDS: SACCHAROMYCES BOULARDII 250 MG CAPSULE PO ×2 (09:35→16:45)
[2022-06-20] MEDS: DOCUSATE SODIUM 100 MG CAPSULE PO ×2 (09:35→21:52)
[2022-06-20] MEDS: BENZONATATE 100 MG CAPSULE 200 MG PO ×3 (09:35→16:45)
[2022-06-20] MEDS: FLUoxetine HCL 20 MG CAPSULE PO (09:36)
[2022-06-20] MEDS: SERTRALINE HCL 25 MG TABLET PO (09:36)
[2022-06-20] MEDS: guaiFENesin 12 HR 600 MG TABCR 1200 MG PO ×2 (09:36→21:52)
[2022-06-20] MEDS: PANTOPRAZOLE SOD SESQUIHYDRATE 20 MG TAB PO (09:41)
[2022-06-20] MEDS: BUDESONIDE/FORMOTEROL (*SP) 160-4.5 MCG 6 GM INH 2 PUFF INHALATION ×2 (09:41→21:52)
[2022-06-20] MEDS: hydroCHLOROthiazide 25 MG TABLET PO (09:41)
[2022-06-20] MEDS: BENZOCAINE/MENTHOL (*BKC) LOZENGE 1 LOZENGE PO (13:15)
[2022-06-20 16:25] VITALS: BP 104/64; PULSE 72; RESP 18; TEMP 36.6; O2SAT 92
[2022-06-21] VITALS: BP 124/71; PULSE 72; RESP 18; TEMP 36.4; O2SAT 95
[2022-06-21] MEDS: ACETAMINOPHEN 325 MG TABLET 650 MG PO (07:04)
[2022-06-21 08:00] VITALS: BP 107/50; PULSE 98; RESP 18; TEMP 36.4; O2SAT 94
[2022-06-21] MEDS: BUDESONIDE/FORMOTEROL (*SP) 160-4.5 MCG 6 GM INH 2 PUFF INHALATION ×2 (09:09→20:28)
[2022-06-21] MEDS: DOCUSATE SODIUM 100 MG CAPSULE PO ×2 (09:10→20:29)
[2022-06-21] MEDS: BENZONATATE 100 MG CAPSULE 200 MG PO ×3 (09:10→16:39)
[2022-06-21] MEDS: SACCHAROMYCES BOULARDII 250 MG CAPSULE PO ×2 (09:10→16:39)
[2022-06-21] MEDS: guaiFENesin 12 HR 600 MG TABCR 1200 MG PO ×2 (09:11→20:29)
[2022-06-21] MEDS: predniSONE 20 MG TABLET PO (09:11)
[2022-06-21] MEDS: CALCIUM CARBONATE (OSCAL) 500 MG TABLET PO (09:12)
[2022-06-21] MEDS: PANTOPRAZOLE SOD SESQUIHYDRATE 20 MG TAB PO (09:12)
[2022-06-21] MEDS: hydroCHLOROthiazide 25 MG TABLET PO (09:12)
[2022-06-21] MEDS: FLUoxetine HCL 20 MG CAPSULE PO (09:12)
[2022-06-21] MEDS: SERTRALINE HCL 25 MG TABLET PO (09:13)
[2022-06-21 16:00] VITALS: BP 120/73; PULSE 80; RESP 16; TEMP 36.6; O2SAT 94
[2022-06-21] MEDS: BENZOCAINE/MENTHOL (*BKC) LOZENGE 1 LOZENGE PO ×3 (16:39→21:41)
[2022-06-21] MEDS: traZODone HCL 50 MG TABLET PO (20:29)
[2022-06-22] VITALS (7 sets, daily range): BP systolic 116–155; BP diastolic 70–90; PULSE 66–107; RESP 16; TEMP 36.2–36.6; O2SAT 92–98
[2022-06-22] MEDS: LORazepam (*CRX) 0.5 MG TABLET PO (00:12)
[2022-06-22 05:57] LABS: Hematocrit 32.4 % (35.0-42.0); Hemoglobin 10.5 g/dL (11.7-13.8); Mean Corpuscular HGB Conc 32.4 g/dL (32.0-36.0); Mean Corpuscular Hemoglobin 31.6 pg (27.0-31.0); Mean Corpuscular Volume 97.6 fL (78.0-102.0); Mean Platelet Volume 9.6 fl (9.2-11.8); Platelet Count Result 250 K/mm3 (150-420); Red Blood Count 3.32 M/mm3 (4.20-5.40); Red Cell Distribution Width 14.5 % (11.6-14.4); White Blood Count 7.9 K/mm3 (4.8-10.8)
[2022-06-22 06:05] LABS: Anion Gap 5 mmol/L (8-16); Blood Urea Nitrogen 25 mg/dL (7-18); Calcium 9.1 mg/dL (8.5-10.1); Carbon Dioxide 34 mmol/L (21-32); Chloride 100 mmol/L (98-108); Estimated CRCL calculation 61 ml/min; Estimated Glomerular Filt Rate > 60; Glucose 75 mg/dL (70-99); Osmolality Calculated 291 mOsm/kg (285-295); Potassium 3.8 mmol/L (3.5-5.1); Sodium 139 mmol/L (136-145)
[2022-06-22] MEDS: SACCHAROMYCES BOULARDII 250 MG CAPSULE PO ×2 (08:22→16:53)
[2022-06-22] MEDS: FLUoxetine HCL 20 MG CAPSULE PO (08:22)
[2022-06-22] MEDS: PANTOPRAZOLE SOD SESQUIHYDRATE 20 MG TAB PO (08:23)
[2022-06-22] MEDS: hydroCHLOROthiazide 25 MG TABLET PO (08:23)
[2022-06-22] MEDS: guaiFENesin 12 HR 600 MG TABCR 1200 MG PO ×2 (08:23→20:30)
[2022-06-22] MEDS: BENZONATATE 100 MG CAPSULE 200 MG PO ×3 (08:24→16:53)
[2022-06-22] MEDS: DOCUSATE SODIUM 100 MG CAPSULE PO ×2 (08:24→20:30)
[2022-06-22] MEDS: CALCIUM CARBONATE (OSCAL) 500 MG TABLET PO (08:24)
[2022-06-22] MEDS: predniSONE 20 MG TABLET PO (08:24)
[2022-06-22] MEDS: SERTRALINE HCL 25 MG TABLET PO (08:25)
[2022-06-22] MEDS: BUDESONIDE/FORMOTEROL (*SP) 160-4.5 MCG 6 GM INH 2 PUFF INHALATION ×2 (08:25→20:33)
--- NOTE | 2022-06-22 10:10 | WPDPN ---
Progress Note: A&P Assessment and Plan (1) Multiple falls: Code(s): R29.6 - Repeated falls Status: Acute Assessment and Plan: ? Exhibit tolerance during physical activity as evidenced by a normal fluctuation of vital signs during physical activity. ? Patient will be ability to perform required activities of daily living. ? Provide appropriate nutrition for healing and strength. ? Use appropriate to prevent falls. ? Continue physical therapy/occupational therapy. (2) Yeast UTI: Code(s): B37.49 - Other urogenital candidiasis Status: Acute Assessment and Plan: Patient received Diflucan (3) Weakness: Code(s): R53.1 - Weakness Status: Acute Assessment and Plan: ? Exhibit tolerance during physical activity as evidenced by a normal fluctuation of vital signs during physical activity. ? Patient will be ability to perform required activities of daily living. ? Provide appropriate nutrition for healing and strength. ? Use appropriate to prevent falls. ? Continue physical therapy/occupational therapy. (4) UTI (urinary tract infection): Code(s): N39.0 - Urinary tract infection, site not specified Status: Acute Assessment and Plan: Chronic Continue Cipro x7 days UA culture Non-uropathogenic Gram positive organism May represent colonizers from external and internal genitalia. (5) Meniere disease: Code(s): H81.09 - Meniere's disease, unspecified ear Status: Acute (6) Hypertension: Code(s): I10 - Essential (primary) hypertension Status: Acute Assessment and Plan: Stable Continue home medication Vital signs as ordered Adjust medication as needed (7) COPD (chronic obstructive pulmonary disease): Code(s): J44.9 - Chronic obstructive pulmonary disease, unspecified Status: Acute Assessment and Plan: Started Symbicort and albuterol Supplementary oxygen as needed Increased shortness of breath Will Add breathing treatment Chest xray in am w morning labs (8) Anxiety and depression: Code(s): F41.9 - Anxiety disorder, unspecified; F32.A - Depression, unspecified Status: Acute Subjective Date/time seen: 06/22/22 10:10 Interval history: Patient is improving with therapy was up ambulating in hallway with physical therapy. Patient does notice increase shortness of breath with activity we will continue to monitor. Patient states she believes the shortness of breath is Related to having to get the mucous out. Discuss with patient she is eating and drinking without difficulties and she has remained a febrile. Exam Narrative: GENERAL: This is a well-nourished, well-developed patient, in no apparent distress. HEAD: normocephalic, atraumatic. EYES: PERRL. Sclera clear/white. Vision is grossly intact. EARS: External ears normal, auditory canals clear and without drainage, TMs normal without perforation. Hearing grossly intact. NOSE: External nose normal with no obvious nasal discharge, nares without redness, no rhinorrhea. THROAT: Mucous membranes moist, posterior pharynx clear. NECK: Neck supple, non-tender without lymphadenopathy, masses or thyromegaly. CARDIOVASCULAR: Regular rate and rhythm without murmurs, gallops, or rubs. RESPIRATORY: Clear to auscultation. Breath sounds equal bilaterally. No wheezes, rales, or rhonchi.? GASTROINTESTINAL: Abdomen soft, non-tender, nondistended. Bowel sounds are active. No hepato-splenomegaly, or palpable masses. No guarding. SKIN: warm, intact with no suspicious lesions or rash, good texture and turgor. NEURO: awake, alert, and oriented to person, place and time. There were no obvious focal neurologic abnormalities.? EXTREMITIES: Normal range of motion.? No edema. No calf tenderness. Objective Data Vital Signs Vital Signs: Vital Signs - 24 hr 06/21/22 16:00 06/22/22 00:00 06/22/22 08:00 Temperature 98 F 97.1 F L 98 F Pulse Rate 80 66 95 R
[2022-06-22] MEDS: IPRATROPIUM 0.5 MG/ALBUTEROL SULFATE 2.5 MG AMPUL.NEB 3 ML INHALATION ×2 (12:56→18:39)
[2022-06-22] MEDS: traZODone HCL 50 MG TABLET PO (20:31)
[2022-06-23] VITALS (7 sets, daily range): BP systolic 100–124; BP diastolic 55–73; PULSE 61–88; RESP 12–16; TEMP 36.2–36.4; O2SAT 91–96
[2022-06-23] MEDS: IPRATROPIUM 0.5 MG/ALBUTEROL SULFATE 2.5 MG AMPUL.NEB 3 ML INHALATION ×3 (00:20→12:41)
[2022-06-23] MEDS: predniSONE 10 MG TABLET PO (08:19)
[2022-06-23] MEDS: BUDESONIDE/FORMOTEROL (*SP) 160-4.5 MCG 6 GM INH 2 PUFF INHALATION ×2 (09:16→20:43)
[2022-06-23] MEDS: FLUoxetine HCL 20 MG CAPSULE PO (09:18)
[2022-06-23] MEDS: SERTRALINE HCL 25 MG TABLET PO (09:19)
[2022-06-23] MEDS: SACCHAROMYCES BOULARDII 250 MG CAPSULE PO ×2 (09:19→16:16)
[2022-06-23] MEDS: hydroCHLOROthiazide 25 MG TABLET PO (09:19)
[2022-06-23] MEDS: CALCIUM CARBONATE (OSCAL) 500 MG TABLET PO (09:19)
[2022-06-23] MEDS: PANTOPRAZOLE SOD SESQUIHYDRATE 20 MG TAB PO (09:19)
[2022-06-23] MEDS: guaiFENesin 12 HR 600 MG TABCR 1200 MG PO ×2 (09:20→20:42)
[2022-06-23] MEDS: DOCUSATE SODIUM 100 MG CAPSULE PO ×2 (09:20→20:43)
[2022-06-23] MEDS: BENZONATATE 100 MG CAPSULE 200 MG PO ×3 (09:20→16:16)
[2022-06-23] MEDS: MECLIZINE HCL 25 MG TABLET PO (09:54)
[2022-06-23] MEDS: ACETAMINOPHEN 325 MG TABLET 650 MG PO (14:57)
[2022-06-23] MEDS: BENZOCAINE/MENTHOL (*BKC) LOZENGE 1 LOZENGE PO (20:45)
[2022-06-24] VITALS: BP 139/86; PULSE 88; RESP 16; TEMP 36.4; O2SAT 93
[2022-06-24] MEDS: traZODone HCL 50 MG TABLET PO ×2 (01:28→21:01)
[2022-06-24 08:00] VITALS: BP 133/65; PULSE 103; RESP 17; TEMP 36.6; O2SAT 91
[2022-06-24] MEDS: FLUoxetine HCL 20 MG CAPSULE PO (08:34)
[2022-06-24] MEDS: SERTRALINE HCL 25 MG TABLET PO (08:34)
[2022-06-24] MEDS: hydroCHLOROthiazide 25 MG TABLET PO (08:35)
[2022-06-24] MEDS: guaiFENesin 12 HR 600 MG TABCR 1200 MG PO ×2 (08:35→21:01)
[2022-06-24] MEDS: BENZONATATE 100 MG CAPSULE 200 MG PO ×3 (08:36→17:04)
[2022-06-24] MEDS: DOCUSATE SODIUM 100 MG CAPSULE PO ×2 (08:36→21:01)
[2022-06-24] MEDS: PANTOPRAZOLE SOD SESQUIHYDRATE 20 MG TAB PO (08:37)
[2022-06-24] MEDS: SACCHAROMYCES BOULARDII 250 MG CAPSULE PO ×2 (08:41→17:04)
[2022-06-24] MEDS: CALCIUM CARBONATE (OSCAL) 500 MG TABLET PO (08:41)
[2022-06-24] MEDS: predniSONE 10 MG TABLET PO (08:41)
[2022-06-24] MEDS: BUDESONIDE/FORMOTEROL (*SP) 160-4.5 MCG 6 GM INH 2 PUFF INHALATION ×2 (08:41→21:02)
[2022-06-24 16:00] VITALS: BP 111/73; PULSE 89; RESP 18; TEMP 36.6; O2SAT 91
[2022-06-24] MEDS: BENZOCAINE/MENTHOL (*BKC) LOZENGE 1 LOZENGE PO (17:05)
--- NOTE | 2022-06-24 18:45 | PC.NURSE ---
Charting by Deena Buckner, student nurse has been reviewed and agreed with by this nurse.
--- NOTE | 2022-06-24 19:42 | PC.NURSE ---
Pt brought fresh ice water, and pt whiteboard updated to show current RN caring for the pt. Pt was appreciative of the ice water, and still shows signs for being [place]. Pt stated she is slightly tired, but is excited to be leaving for home tomorrow. This RN discussed w/the pt if the sleep aids would be wanted tonight to which Bonita stated yes, I believe I had one last night, but it didn't work so I was given the other one. Pt seems to be in good mood and has her call light w/in reach. Side railsx3, located near nurses station, and bed in lowest position for pt safety.
[2022-06-24 23:02] VITALS: BP 100/66; PULSE 71; RESP 16; TEMP 36.4; O2SAT 93
[2022-06-25 08:00] VITALS: BP 124/70; PULSE 80; RESP 17; TEMP 36.1; O2SAT 95
[2022-06-25] MEDS: BUDESONIDE/FORMOTEROL (*SP) 160-4.5 MCG 6 GM INH 2 PUFF INHALATION (08:29)
[2022-06-25] MEDS: guaiFENesin 12 HR 600 MG TABCR 1200 MG PO (08:30)
[2022-06-25] MEDS: predniSONE 10 MG TABLET PO (08:30)
[2022-06-25] MEDS: DOCUSATE SODIUM 100 MG CAPSULE PO (08:30)
[2022-06-25] MEDS: FLUoxetine HCL 20 MG CAPSULE PO (08:30)
[2022-06-25] MEDS: hydroCHLOROthiazide 25 MG TABLET PO (08:30)
[2022-06-25] MEDS: SACCHAROMYCES BOULARDII 250 MG CAPSULE PO (08:30)
[2022-06-25] MEDS: BENZONATATE 100 MG CAPSULE 200 MG PO ×2 (08:30→12:13)
[2022-06-25] MEDS: SERTRALINE HCL 25 MG TABLET PO (08:30)
[2022-06-25] MEDS: PANTOPRAZOLE SOD SESQUIHYDRATE 20 MG TAB PO (08:30)
[2022-06-25] MEDS: CALCIUM CARBONATE (OSCAL) 500 MG TABLET PO (08:30)
[2022-06-25] MEDS: BENZOCAINE/MENTHOL (*BKC) LOZENGE 1 LOZENGE PO (08:31)
--- NOTE | 2022-06-25 09:32 | PM.DS ---
DS: Admitting Diagnosis Discharge Date 06/25/2022 Admitting Diagnosis Weakness DS: Discharge Diagnosis Discharge Diagnosis (1) Multiple falls: Code(s): R29.6 - Repeated falls Status: Acute Assessment and Plan: ? Exhibit tolerance during physical activity as evidenced by a normal fluctuation of vital signs during physical activity. ? Patient will be ability to perform required activities of daily living. ? Provide appropriate nutrition for healing and strength. ? Use appropriate to prevent falls. ? Continue physical therapy/occupational therapy. Discharge Patient will go home with nursing PT and OT (2) Yeast UTI: Code(s): B37.49 - Other urogenital candidiasis Status: Acute Assessment and Plan: Resolved Patient received Diflucan (3) Weakness: Code(s): R53.1 - Weakness Status: Acute Assessment and Plan: ? Exhibit tolerance during physical activity as evidenced by a normal fluctuation of vital signs during physical activity. ? Patient will be ability to perform required activities of daily living. ? Provide appropriate nutrition for healing and strength. ? Use appropriate to prevent falls. ? Continue physical therapy/occupational therapy. (4) UTI (urinary tract infection): Code(s): N39.0 - Urinary tract infection, site not specified Status: Acute Assessment and Plan: Chronic Continue Cipro x7 days UA culture Non-uropathogenic Gram positive organism May represent colonizers from external and internal genitalia. (5) Meniere disease: Code(s): H81.09 - Meniere's disease, unspecified ear Status: Acute (6) Hypertension: Code(s): I10 - Essential (primary) hypertension Status: Acute Assessment and Plan: Stable Continue home medication (7) COPD (chronic obstructive pulmonary disease): Code(s): J44.9 - Chronic obstructive pulmonary disease, unspecified Status: Acute Assessment and Plan: Continue Symbicort and albuterol (8) Anxiety and depression: Code(s): F41.9 - Anxiety disorder, unspecified; F32.A - Depression, unspecified Status: Acute DS: Summary Hospital Course Reason for hospitalization: Weakness, multiple falls Hospital Course: This is a 77-year-old female that presented to the emergency department after multiple falls and complaints of weakness.? Patient has a past medical history of COPD, hypertension, M?ni?re's disease, and weakness.? Patient notes that for the last 6 months she has been falling multiple times due to her M?ni?re's disease.? Patient notes that she has also injured her head on a couple occasions but this particular fall she did not.? Patient notes that she had not had a bowel movement for several days in felt the urge to have a bowel movement and attempted to get up and go to the restroom when she fell.? Patient does have a walker at home but does not utilize it.? Patient notes that her walker is too big for her home and she is unable to use it.? Patient also notes that she had not been eating properly because she cannot get to her food ,she is unable to care for herself. Patient will discharge this day with home health and PT OT. Patient able to ambulate 150 feet with standby assistance x1 with four-wheel walker. Patient has improved since her rehab in has progressed as expected. It is safe for patient to discharge home. Discharge instructions reviewed with patient, as well as provided in writing per nursing staff. The instructions also include specific and strict return/GO TO THE ER as well as f/u information. All questions have been answered, and the patient and/or family deny any further questions with discharge and discharge plan. Time Spent with Patient Time attestation: Total time spent providing and/or coordinating discharge services: Exam Narrative: GENERAL: This is a well-nourished, well-developed patient, in no apparent distress. H
--- NOTE | 2022-06-25 12:56 | PC.NURSE ---
Discharge instructions reviewed with patient. All questions answered. Pt dressed and awaiting transport from OT.
--- NOTE | 2022-06-26 13:07 | PC.NURSE ---
discharge call back attempted, no answer
--- NOTE | 2022-06-27 14:04 | PC.NURSE ---
discharge call back attempted, no answer
--- NOTE | 2022-06-28 14:20 | PC.NURSE ---
discharge call back, no answer, unable to complete
== END 2022-06-25 13:25 | disposition home health service (06) | DRG 948 ==
PROVIDERS: Nurse Practitioner Family; Admitting Provider Internal Medicine; PCP Physician Assistant; Visit Provider Internal Medicine
DX: R53.1 Weakness (principal); G91.2 (Idiopathic) normal pressure hydrocephalus; N39.0 Urinary tract infection, site not specified; J44.9 Chronic obstructive pulmonary disease, unspecified; I10 Essential (primary) hypertension; H81.09 Meniere's disease, unspecified ear; R29.6 Repeated falls; F41.9 Anxiety disorder, unspecified; F32.A Depression, unspecified; Z98.2 Presence of cerebrospinal fluid drainage device; Z87.891 Personal history of nicotine dependence
CPT/HCPCS: 36415; 80048; 85027; 94640; 97110; 97112; 97140; 97161; 97165; 97530; 97535; A9270; J7512

== ENCOUNTER 2022-06-17 13:01 | Outpatient (CLI) | payer MEDICARE, MEDICAID, SELFPAY | END 2022-06-17 13:02 | disposition home or self-care (01) | LOC: CHSLAB 13:04 | PROVIDERS: PCP Physician Assistant; Visit Provider Specialist | DX: C44.529 Squamous cell carcinoma of skin of other part of trunk (principal) | CPT/HCPCS: 88305 ==

== ENCOUNTER 2022-08-26 17:04 | Outpatient (CLI) | payer MEDICARE, MEDICAID, SELFPAY ==
--- NOTE | ~2022-08-26 | XR_ITS ---
EXAMINATION: XR ribs LT 2V INDICATION: Left-sided chest pain TECHNIQUE: 3 views of the left ribs were obtained. COMPARISON: 06/11/2022 FINDINGS: There are acute fractures at the lateral aspects of the left fourth through seventh ribs wi th minimal displacement. Visualized portions of the left lung are clear. No pleural effusion or pneum othorax. The cardiomediastinal silhouette is stable. Ventriculoperitoneal shunt catheter tubing cours es over the right hemithorax. There are surgical changes in the upper abdomen. IMPRESSION: 1. Acute fractures at the lateral aspects of the left fourth through seventh ribs with minimal displa cement. Reviewed, dictated and finalized at location B. H SPECIALIST IMPRESSION: 1. Acute fractures at the lateral aspects of the left fourth through seventh ri bs with minimal displacement.
== END 2022-08-26 17:05 | disposition home or self-care (01) ==
LOC: CHSIMG 17:07
PROVIDERS: PCP Physician Assistant; Visit Provider Physician Assistant
DX: S22.42XA Multiple fractures of ribs, left side, initial encounter for closed fracture (principal)
CPT/HCPCS: 71100

== ENCOUNTER 2022-09-07 13:37 | Observation (INO) | payer MEDICARE, MEDICAID, SELFPAY ==
[2022-09-07] VITALS (8 sets, daily range): BP systolic 102–154; BP diastolic 56–84; PULSE 92–109; RESP 16–20; TEMP 36.6–36.9; O2SAT 86–98; BMI 24.0
--- NOTE | ~2022-09-07 | CT_ITS ---
EXAMINATION: CT chest high resolution wo co DATE: 09/07/2022 14:08 INDICATION: Fall pain to posterior left ribs TECHNIQUE: Computed tomography (CT) of the chest including high-resolution images of the lungs was pe rformed without intravenous contrast. Automated exposure control and iterative reconstruction technNetworked Insights ue were employed. The dose-length product was 159.35 mGy-cm. COMPARISON: X-ray RIBS 08/26/2022, CT chest 05/04/2022. FINDINGS: CHEST: Exam limited by beam hardening from a right shoulder arthroplasty and respiratory motion, which could obscure subtle pathology. Thoracic aorta: Moderate arch calcification. Lung parenchyma and airways: Senescent change. Scattered centrilobular nodular opacities and subsegme ntal areas of consolidation in the left upper lobe. Biapical and right basilar scarring. Thoracic inlet, axillae and chest wall: No thyroid or soft tissue mass. No axillary lymphadenopathy. Mediastinum: No mass or lymphadenopathy. Moderate hiatal hernia. Heart and pericardium: Normal heart size. Small volume pericardial fluid, stable. Mitral and aortic v alve calcification. Coronary artery calcifications: Moderate. Pleura: Intact ventriculopleural shunt tubing traverses the right chest terminating in the right post erior pleural space where there is a stable chronic pleural fluid collection. Upper abdomen: No significant acute finding. Prior surgery at the GE junction. Thoracic bones: Subacute fractures of the left anterolateral fourth through seventh ribs. Multiple ol d healed right rib fractures. IMPRESSION: Limited examination, as detailed above. Mild scattered left upper lobe opacities may reflect aspirati on, contusion, or atypical infection/infectious airways disease. Otherwise, no acute thoracic process detected. Reviewed, dictated and finalized at location K. TENANCE CUSTODIAN IMPRESSION: Limited examination, as detailed above. Mild scattered left upper lobe opacitie s may reflect aspiration, contusion, or atypical infection/infectious airways d isease. Otherwise, no acute thoracic process detected.
--- NOTE | ~2022-09-07 | CT_ITS ---
EXAMINATION: CT brain wo con DATE: 09/07/2022 14:07 INDICATION: Fall with posterior head pain TECHNIQUE: Computed tomography (CT) of the head was performed without intravenous contrast. Sagittal and coronal reconstructions were performed. The mA was adjusted according to patient size. Iterative reconstruction technique was employed. The dose-length product was 681.00 mGy-cm. COMPARISON: head CT dated 06/11/22 and 04/03/2022 FINDINGS: No fracture. Right frontal ventricular drainage catheter with tip in the body of the right lateral ve ntricle with encephalomalacia in the right frontal lobe extending along the tract of the catheter whi ch extends through a right frontal vanessa hole. No interval change in the degree of ventriculomegaly in volving the left and right lateral and third ventricles. No acute intracranial hemorrhage, acute infa rction or abnormal extra axial fluid collection. There is mild scattered white matter hypoattenuation consistent with chronic small vessel ischemic disease. No abnormal intracranial mass lesion. Mild mu cosal thickening the ethmoid sinuses. The orbits and mastoid air cells are normal. IMPRESSION: 1. No fracture or acute intracranial process. 2. Stable appearance of ventriculomegaly involving the lateral and third ventricles with unchanged ri ght frontal ventricular shunt catheter in expected position. 2. Small amount of encephalomalacia along the catheter tract with additional mild scattered white mat ter hypoattenuation consistent with chronic small vessel ischemic disease. Reviewed, dictated and finalized at location A. N RESOURCE CONSULTANT IMPRESSION: 1. No fracture or acute intracranial process. 2. Stable appearance of ventriculomegaly involving the lateral and third ventri cles with unchanged right frontal ventricular shunt catheter in expected positi on. 2. Small amount of encephalomalacia along the catheter tract with additional mi ld scattered white matter hypoattenuation consistent with chronic small vessel ischemic disease.
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
[2022-09-07] MEDS: KETOROLAC 30 MG/ML VIAL (*BKC) IM (15:15)
--- NOTE | 2022-09-07 16:52 | PC.NURSE ---
pt resting per cot. no needs at this time. awaiting lab results for admission to floor. call estrada in reach.
[2022-09-07 17:07] LABS: Add Urine Microscopic? YES; Appearance Urine Clear (Clear); Bilirubin Urine Negative (Negative); Blood Urine Negative (Negative); Color Urine Yellow (Yellow); Glucose Urine UA Negative (Negative); Ketones Urine Negative (Negative); Leukocyte Esterase Ur Negative LEU/UL (Negative); Nitrate Urine Positive (Negative); Protein Urine Negative (Negative); Specific Grav Ur 1.025 (1.010-1.020)
[2022-09-07 17:13] LABS: Basophils Absolute Auto 0.01 K/mm3 (0.00-0.10); Basophils Percent Auto 0.1 % (0.0-1.0); Eosinophils Absolute Auto 0.04 K/mm3 (0.02-0.50); Eosinophils Percent Auto 0.4 % (1.0-6.0); Hematocrit 32.8 % (35.0-42.0); Hemoglobin 10.8 g/dL (11.7-13.8); Immature Granulocyte Absolute 0.05 K/mm3 (0.00-0.00); Immature Granulocyte Percent A 0.5 % (0.0-0.0); Lymphocytes Absolute Auto 0.98 K/mm3 (1.10-4.50); Lymphocytes Percent Auto 9.3 % (18.0-42.0); Mean Corpuscular HGB Conc 32.9 g/dL (32.0-36.0); Mean Corpuscular Hemoglobin 31.8 pg (27.0-31.0); Mean Corpuscular Volume 96.5 fL (78.0-102.0); Mean Platelet Volume 9.3 fl (9.2-11.8); Monocytes Absolute Auto 0.68 K/mm3 (0.10-0.90); Monocytes Percent Auto 6.5 % (2.0-11.0); Neutrophils Absolute Auto 8.7 K/mm3 (1.7-7.2); Neutrophils Percent Auto 83.2 % (50.0-70.0); Platelet Count Result 201 K/mm3 (150-420); Red Cell Distribution Width 13.8 % (11.6-14.4); Squamous Epithelial Cell Urine Few /hpf (Few); WBC Urine 0-3 /hpf (0-3); White Blood Count 10.5 K/mm3 (4.8-10.8)
[2022-09-07 17:14] LABS: Bacteria Urine 4+ /hpf; Calcium Oxalate Crystals Urine Present /hpf
[2022-09-07 17:20] LABS: Alanine Aminotransferase 11 U/L (14-59); Albumin Level 2.4 g/dL (3.4-5.0); Alkaline Phosphatase 146 U/L (46-116); Anion Gap 2 mmol/L (8-16); Aspartate Amino Transferase 13 U/L (15-37); Bilirubin,Total 0.9 mg/dL (0.00-1.00); Blood Urea Nitrogen 16 mg/dL (7-18); Carbon Dioxide 35 mmol/L (21-32); Chloride 102 mmol/L (98-108); Estimated CRCL calculation 43 ml/min; Estimated Glomerular Filt Rate > 60; Glucose 100 mg/dL (70-99); Magnesium 1.4 mg/dL (1.8-2.4); Osmolality Calculated 289 mOsm/kg (285-295); Potassium 4.2 mmol/L (3.5-5.1); Sodium 139 mmol/L (136-145); Total Protein 5.8 g/dL (6.4-8.2)
--- NOTE | 2022-09-07 17:26 | ECG_ITS ---
Measurements Intervals [place] Rate: 113 P: 62 NV: 101 QRS: 9 QRSD: 72 T: 0 QT: 222 QTc: 305 Interpretive Statements SINUS TACHYCARDIA WITH SHORT NV INTERVAL ATRIAL AND VENTRICULAR PREMATURE COMPLEXES LOW QRS VOLTAGE- DIFFUSE LEADS BORDERLINE ST-T WAVE ABNORMALITY- DIFFUSE LEADS BASELINE WANDER- I, II, III, AVR, AVL, AVF, V1, V4-V6 ABNORMAL ECG COMPARED TO ECG 06/11/2022 21:25:42 SINUS TACHYCARDIA NOW PRESENT Electronically Signed On 09-08-2022 6:48:28 GEM CUTTER by Austin Arguelles D.O.
[2022-09-07 17:46] LABS: Creatine Kinase 29 U/L (26-192)
--- NOTE | 2022-09-07 18:10 | ADMGEN ---
This patient, Bonita Modi, was admitted to 2nd Floor Room 207-1. Patient/family oriented to hospital policies and general routines including ID bracelet, bed and alarms, visiting hours, pain management, procedures, bathroom and other care routines, personal items, smoking policy, room service/diet, and visiting hours. Information on how to activate the Rapid Response Team has been discussed. Patient/Family are encouraged to report perceived risks to care and to ask questions if they do not understand what they are told or what they should do.
--- NOTE | 2022-09-07 18:26 | PC.NURSE ---
1545- unable to verify pt home meds. pt states she does not know her home meds and she did not bring a list
[2022-09-07] MEDS: HYDROcodone/acetaminophen (*CRX) 5-325 MG TABLET 1 TAB PO (18:29)
--- NOTE | 2022-09-07 19:25 | PC.NURSE ---
This RN attempted 3x to gain IV access w/no success, and Tatyana Jenkins RN attempted 2x w/o success as well. ED called to have a RN attempt, but RNs in ED were not able to help at the time, so REHABILITATION CLERK called to switch pt's IV meds to po.
[2022-09-07] MEDS: CEFDINIR 300 MG CAPSULE PO (22:34)
[2022-09-08 00:02] VITALS: O2SAT 94
[2022-09-08] MEDS: HYDROcodone/acetaminophen (*CRX) 5-325 MG TABLET 1 TAB PO ×2 (01:55→09:28)
[2022-09-08 06:41] LABS: Alanine Aminotransferase 7 U/L (14-59); Albumin Level 2.1 g/dL (3.4-5.0); Alkaline Phosphatase 144 U/L (46-116); Anion Gap 7 mmol/L (8-16); Aspartate Amino Transferase 12 U/L (15-37); Bilirubin,Total 0.7 mg/dL (0.00-1.00); Blood Urea Nitrogen 21 mg/dL (7-18); Calcium 8.8 mg/dL (8.5-10.1); Carbon Dioxide 27 mmol/L (21-32); Chloride 102 mmol/L (98-108); Estimated CRCL calculation 62 ml/min; Estimated Glomerular Filt Rate > 60; Glucose 91 mg/dL (70-99); Magnesium 1.9 mg/dL (1.8-2.4); Osmolality Calculated 285 mOsm/kg (285-295); Potassium 4.2 mmol/L (3.5-5.1); Sodium 136 mmol/L (136-145); Total Protein 5.8 g/dL (6.4-8.2)
[2022-09-08 06:57] LABS: Hematocrit 31.2 % (35.0-42.0); Mean Corpuscular HGB Conc 32.1 g/dL (32.0-36.0); Mean Corpuscular Hemoglobin 30.9 pg (27.0-31.0); Mean Corpuscular Volume 96.3 fL (78.0-102.0); Mean Platelet Volume 9.2 fl (9.2-11.8); Platelet Count Result 190 K/mm3 (150-420); Red Blood Count 3.24 M/mm3 (4.20-5.40); Red Cell Distribution Width 14.1 % (11.6-14.4); White Blood Count 7.5 K/mm3 (4.8-10.8)
[2022-09-08 08:00] VITALS: BP 146/77; PULSE 107; RESP 18; TEMP 36.3; O2SAT 75; O2SAT 96
[2022-09-08 09:00] VITALS: PULSE 79; O2SAT 91
[2022-09-08 09:05] VITALS: PULSE 110; O2SAT 87
[2022-09-08 09:15] VITALS: PULSE 120; O2SAT 93
[2022-09-08] MEDS: CEFDINIR 300 MG CAPSULE PO (09:23)
[2022-09-08] MEDS: ENOXAPARIN 40 MG/0.4 ML SYRINGE SUB-Q (09:25)
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
[2022-09-08 14:15] VITALS: O2SAT 93
--- NOTE | 2022-09-08 14:27 | PC.NURSE ---
Pt discharged to home with VSS. Pt instructed to wear her oxygen @ 3L/NC at all times. Pt instructed regarding medications and follow up PCP appointment. Pt verbilized understanding of instructions.
--- NOTE | 2022-09-10 14:37 | PC.NURSE ---
Pt states she received and understood the discharge instructions. She also states everyone treated me very well .
== END 2022-09-08 14:15 | disposition home health service (06) ==
LOC: CHSED 17:30 → CHS2ND 17:57
PROVIDERS: Nurse Practitioner; Admitting Provider Internal Medicine; Emergency Provider Emergency Medicine; PCP Physician Assistant; Visit Provider Internal Medicine
DX: S27.321A Contusion of lung, unilateral, initial encounter (principal); S22.42XA Multiple fractures of ribs, left side, initial encounter for closed fracture; N39.0 Urinary tract infection, site not specified; J44.9 Chronic obstructive pulmonary disease, unspecified; I10 Essential (primary) hypertension; G91.2 (Idiopathic) normal pressure hydrocephalus; R53.1 Weakness; R29.6 Repeated falls; B96.1 Klebsiella pneumoniae [K. pneumoniae] as the cause of diseases classified elsewhere; F32.A Depression, unspecified; F41.9 Anxiety disorder, unspecified; V49.40XA Driver injured in collision with unspecified motor vehicles in traffic accident, initial encounter; W19.XXXA Unspecified fall, initial encounter; Z98.2 Presence of cerebrospinal fluid drainage device; Z87.891 Personal history of nicotine dependence
CPT/HCPCS: 36415; 70450; 71250; 80053; 81001; 82550; 83735; 85025; 85027; 87077; 87086; 87088; 87186; 93005; 94618; 96372; 97162; 97165; 99285; A9270; G0378; J1650; J1885

== ENCOUNTER 2022-11-12 11:27 | Emergency (ER) | payer MEDICARE, SELFPAY ==
--- NOTE | ~2022-11-12 | CT_ITS ---
EXAMINATION: CT lumbar spine wo con DATE: 11/12/2022 12:03 INDICATION: Coccygeal pain post fall TECHNIQUE: Computed tomography (CT) of the lumbar spine was performed without intravenous contrast. A utomated exposure control and iterative reconstruction technique were employed. The dose-length produ ct was 925.24 mGy-cm. COMPARISON: CT lumbar spine dated 12/15/2013, CT abdomen and pelvis dated 12/14/2020, CT pelvis dated and CT chest dated 09/07/2022 FINDINGS: 7 degrees upper lumbar levocurvature. Unchanged 4 mm retrolisthesis L2 on L3 and 2 mm anterior and ri ght lateral listhesis of L4 on L5. Chronic L2 burst fracture with central depression of the superior endplate resulting in 40% central vertebral body height loss and with 3-4 mm retropulsion. Remaining vertebral body heights are normal. Unchanged old healed fracture at S5. No acute fractures or new mal alignment. Moderate disc height loss with vacuum phenomena at L2-L3. Mild anterior disc height loss a t L1-L2 with ballooning of the more posterior disc space resulting from the L2 burst fracture. Additi onal mild disc height loss with small amount of vacuum phenomena at L4-L5. Catheter tubing within a s mall loculated appearing pleural effusion at the right lung base which on prior CT corresponds to a v entriculoperitoneal shunt. Postoperative changes along the margin of a small sliding-type hiatal devan ia. Cholecystectomy clips the gallbladder fossa. Moderate diverticulosis along the sigmoid colon. The re is an anastomotic suture line along a loop of bowel in the central pelvis. The following disc leve ls are specifically discussed: T11-T12: Disc is mildly bulging. There is mild bilateral facet joint osteoarthritis. There is no neur al foraminal stenosis. There is minimal central canal stenosis. T12-L1: Disc is mildly bulging. There is moderate left and mild to moderate right facet joint osteoar thritis. There is no neural foraminal stenosis. There is minimal central canal stenosis. L1-L2: Disc is mildly bulging and there is mild retropulsion of the superior posterior wall of L2. Th ere is moderate right and severe left facet joint osteoarthritis. There is mild right neural foramina l stenosis. There is mild central canal stenosis. L2-L3: Disc is bulging. There is mild right and moderate left facet joint osteoarthritis. There is mi ld bilateral neural foraminal stenosis. There is mild central canal stenosis. L3-L4: Disc is bulging. There is hypertrophy of the ligamentum flavum. There is mild bilateral facet joint osteoarthritis. There is moderate bilateral neural foraminal stenosis. There is mild to modera te central canal stenosis. L4-L5: Disc is bulging. There is hypertrophy of the ligamentum flavum. There is moderate to severe bi lateral facet joint osteoarthritis. There is moderate bilateral, left greater than right neural shayna inal stenosis. There is moderate to severe central canal stenosis. L5-S1: Disc is mildly bulging. There is moderate to severe bilateral facet joint osteoarthritis. Ther e is mild right and mild to moderate left . neural foraminal stenosis. There is no central canal sten osis. IMPRESSION: 1. Moderate to severe lumbar spondylosis with no change in a chronic L2 burst fracture. 2. Old healed fracture at S5. No acute sacrococcygeal abnormality. Reviewed, dictated and finalized at location B. ULTING PSYCHIATRIST IMPRESSION: 1. Moderate to severe lumbar spondylosis with no change in a chronic L2 burst f racture. 2. Old healed fracture at S5. No acute sacrococcygeal abnormality.
--- NOTE | ~2022-11-12 | XR_ITS ---
EXAMINATION: XR pelvis 1-2V DATE: 11/12/2022 12:02 INDICATION: Fall. Coccygeal pain. TECHNIQUE: An anteroposterior view of the pelvis was obtained. COMPARISON: Pelvis radiographs 08/17/2015 FINDINGS: Bone alignment is normal. No fracture. There is mild lumbar spondylosis. There is moderate osteoarthritis of the hips. Staple lines overlie the abdomen. IMPRESSION: 1. Moderate osteoarthritis of the hips. Reviewed, dictated and finalized at location A. ING METER MECHANIC
--- NOTE | ~2022-11-12 | XR_ITS ---
EXAMINATION: XR shoulder RT min 2V DATE: 11/12/2022 12:02 INDICATION: Right shoulder pain. TECHNIQUE: 5 views of right shoulder were obtained. COMPARISON: Right shoulder radiographs 05/21/2009 FINDINGS: Bone alignment is normal. There is a right shoulder hemiarthroplasty in near-anatomic align ment. No significant periprosthetic lucency to suggest loosening or infection. No acute fracture. The re are old healed right rib fractures. There is severe osteoarthritis of glenohumeral joint. There is mild acromioclavicular joint osteoarthritis. A ventriculoperitoneal shunt is noted. IMPRESSION: 1. Right shoulder hemiarthroplasty in near-anatomic alignment. 2. Severe right glenohumeral joint osteoarthritis. Reviewed, dictated and finalized at location A. ICAL EDUCATION SPECIALIST
--- NOTE | 2022-11-12 11:30 | ED.FALL ---
HPI - Fall General Chief Complaint: Fall Stated Complaint: fall/Rt shoulder pain Time Seen by Provider: 11/12/22 11:29 Source: patient, EMS and RN notes reviewed Mode of arrival: EMS Limitations: no limitations History of Present Illness HPI Narrative: Patient states that she was coming out of the bathroom when she tripped and fell onto the bathtub with her right shoulder and then falling onto her buttocks. She complains of pain in her right shoulder where she has had a shoulder replacement and pain in her tailbone. She denies any LOC. She did not hit her head. complaint: fall Onset (ago): minute(s) (30) Fall from: standing Fall witnessed: no Place fall occurred: home Loss of consciousness: none Prolonged down time: no Symptoms prior to fall: none Context: tripped/slipped Location of injury: buttocks Location of injury - extremities: Right: shoulder Severity: moderate Quality: dull and aching Associated symptoms (after fall): denies Related Data Home Medications Medication Instructions Recorded Confirmed cholecalciferol (vitamin D3) 250 250 mcg PO DAILY 09/09/21 09/08/22 mcg (10,000 unit) capsule meclizine 25 mg tablet 25 mg PO TID PRN Dizziness 09/09/21 09/08/22 calcium carbonate-vitamin D3 2 tablet BYMOUTH 1XD 09/08/22 09/08/22 citalopram 20 mg tablet 20 mg PO DAILY 09/08/22 09/08/22 oxybutynin chloride 5 mg tablet 5 mg PO TID 11/12/22 11/12/22 Allergies Allergy/AdvReac Type Severity Reaction Status Date / Time epinephrine Allergy Severe SHAKINESS Verified 11/12/22 11:52 Iodinated Contrast Media Allergy Severe Anaphylaxis Verified 11/12/22 11:52 IVP DYE Allergy Severe RESP ARREST Uncoded 11/12/22 11:52 Contrast Media Allergy Unknown IVP DYE = Uncoded 11/12/22 11:52 RESP ARREST Review of Systems Review of Systems: All systems reviewed & are unremarkable except as noted in HPI and below PMFSH Past Medical History Medical History COPD (chronic obstructive pulmonary disease) Hypertension Meniere disease Normal pressure hydrocephalus Weakness Surgical History Surgical History S/P FLOWER PICKER shunt Family History Family History (System 07/07/22 @ 15:08 by Valeria Vanessa Kaye) Mother Cerebrovascular accident Other Diabetes mellitus Family history of mental disorder Hypertension Social History Social History Smoking packs per day: 2 Smoking cigarettes per day: 40.0 Years smoked: 40 Smoking pack-years: 80.00 Smoking status: Former smoker Tobacco type: cigarettes and e-cigarettes/vaping Second hand tobacco smoke exposure: Yes Smoking end date: 10/19/06 Alcohol intake: current Drinks per week: 1 Substance use: never Substance use type: does not use Lack of Transportation: No Lack of Food: Sometimes True Current Housing: I Have Housing Concerned About Future Housing: No Difficulty Paying Gas/Electric Bills: YES Difficulty Paying for Meds: No Currently Unemployed: No Education: Associate Degree Difficulty w/ Childcare or Family Care: No Living arrangements: alone Spiritual care concerns: No Exam Const: General: healthy appearing, no acute distress and alert Nutritional Appearance: well nourished Orientation/consciousness: patient oriented x3 Limitations: no limitations HENMT: Head: normal to inspection Ears: external ears normal Face/Nose/Sinus: Normal external nose present Face and sinus: normal facial exam Mouth: Yes moist mucous membranes Eyes: Conjunctivae: conjunctivae normal Pupils: Equal, round and reactive pupils present EOM: EOMs intact bilaterally Neck: Neck: normal visual inspection Resp: Effort & Inspection: normal respiratory effort Auscultation: clear to auscultation bilaterally Cardio: Rate: regular rate Rhythm: regular rhythm GI: GI Palp: Yes Soft to palpati
[2022-11-12 11:34] VITALS: BP 108/72; PULSE 88; RESP 18; TEMP 36.4; O2SAT 98
[2022-11-12 13:18] VITALS: BP 122/95; PULSE 89; RESP 16; TEMP 36.9; O2SAT 98
== END 2022-11-12 13:35 | disposition home or self-care (01) ==
PROVIDERS: Emergency Provider Emergency Medicine; PCP Physician Assistant
DX: S30.0XXA Contusion of lower back and pelvis, initial encounter (principal); S40.011A Contusion of right shoulder, initial encounter; J44.9 Chronic obstructive pulmonary disease, unspecified; I10 Essential (primary) hypertension; Z87.891 Personal history of nicotine dependence; W18.2XXA Fall in (into) shower or empty bathtub, initial encounter; Y92.002 Bathroom of unspecified non-institutional (private) residence as the place of occurrence of the external cause
CPT/HCPCS: 72131; 72170; 73030; 99284

== ENCOUNTER 2022-12-10 14:49 | Emergency (ER) | payer MEDICARE, SELFPAY ==
[2022-12-10 14:52] VITALS: BP 138/72; PULSE 65; RESP 18; TEMP 36.6; O2SAT 98
--- NOTE | 2022-12-10 15:27 | ECG_ITS ---
Measurements Intervals [place] Rate: 66 P: 64 AL: 121 QRS: 52 QRSD: 72 T: 43 QT: 391 QTc: 410 Interpretive Statements SINUS RHYTHM LOW QRS VOLTAGE IN PRECORDIAL LEADS [QRS DEFLECTION < 1.0 mV IN CHEST LEADS] NONSPECIFIC ST ABNORMALITY ABNORMAL ECG COMPARED TO ECG 09/07/2022 17:56:58 SINUS RHYTHM NOW PRESENT Electronically Signed On 12-11-2022 10:10:53 CLASS B TRUCK DRIVER by Francisco Arias M.D.
--- NOTE | 2022-12-10 15:45 | ED.WEAKNESS ---
HPI - Weakness General Chief complaint: Weakness Stated complaint: weakness/Tired Time Seen by Provider: 12/10/22 15:14 History of Present Illness HPI Narrative: This is a 77-year-old female with past medical history of GERD, who presents to the emergency department complaining of generalized weakness for the past 2 to 3 weeks without acute change. She states she was seen at her primary care doctor's office and sent here for further evaluation. She also notes some increasing forgetfulness, but has no other complaints. Related Data Home Medications Medication Instructions Recorded Confirmed cholecalciferol (vitamin D3) 250 250 mcg PO DAILY 09/09/21 12/10/22 mcg (10,000 unit) capsule meclizine 25 mg tablet 25 mg PO TID PRN Dizziness 09/09/21 12/10/22 calcium carbonate-vitamin D3 2 tablet BYMOUTH 1XD 09/08/22 12/10/22 citalopram 20 mg tablet 20 mg PO DAILY 09/08/22 12/10/22 oxybutynin chloride 5 mg tablet 5 mg PO TID 11/12/22 12/10/22 Allergies Allergy/AdvReac Type Severity Reaction Status Date / Time epinephrine Allergy Severe SHAKINESS Verified 12/10/22 15:19 Iodinated Contrast Media Allergy Severe Anaphylaxis Verified 12/10/22 15:19 IVP DYE Allergy Severe RESP ARREST Uncoded 12/10/22 15:19 Contrast Media Allergy Unknown IVP DYE = Uncoded 12/10/22 15:19 RESP ARREST Review of Systems Review of Systems: CONSTITUTIONAL: Denies fever, chills, or sweats. EYES: Denies visual changes, redness, or discharge. ENT: Denies rhinorrhea, congestion, sore throat, or otalgia. CARDIOVASCULAR: Denies chest pain, palpitations, or edema. RESPIRATORY: Denies cough or dyspnea. GASTROINTESTINAL: Denies abdominal pain, nausea, vomiting, or diarrhea. GENITOURINARY: Denies dysuria or hematuria. SKIN: Denies rash or itching. MUSCULOSKELETAL: Denies back pain, joint pain, or myalgia. NEUROLOGIC: Generalized weakness denies headache, numbness, dizziness. PSYCHIATRIC: Denies anxiety or depression. [facility] Past Medical History Medical History COPD (chronic obstructive pulmonary disease) Hypertension Meniere disease Normal pressure hydrocephalus Weakness Surgical History Surgical History S/P OUTSIDE RESIDENTIAL SALES PROFESSIONAL shunt Family History Family History Mother Cerebrovascular accident Other Diabetes mellitus Family history of mental disorder Hypertension Social History Social History Smoking packs per day: 2 Smoking cigarettes per day: 40.0 Years smoked: 40 Smoking pack-years: 80.00 Smoking status: Former smoker Tobacco type: cigarettes and e-cigarettes/vaping Second hand tobacco smoke exposure: Yes Smoking end date: 10/19/06 Alcohol intake: current Drinks per week: 1 Substance use: never Substance use type: does not use Lack of Transportation: No Lack of Food: Sometimes True Current Housing: I Have Housing Concerned About Future Housing: No Difficulty Paying Gas/Electric Bills: YES Difficulty Paying for Meds: No Currently Unemployed: No Education: Associate Degree Difficulty w/ Childcare or Family Care: No Living arrangements: alone Spiritual care concerns: No Exam Narrative: GENERAL: Well-developed, well-nourished, and in no acute distress. HEAD: Normocephalic, atraumatic. EYES: PERRLA and EOMI. ENT: Upper and lower dentures in place. Nares clear, no rhinorrhea or epistaxis. Mucous membranes moist. Oropharynx without tonsillar hypertrophy exudate or other lesions. NECK: Supple. No adenopathy or masses. No carotid bruits or JVD CHEST: Clear to auscultation. No respiratory distress. No wheezes rales or rhonchi HEART: Regular rate and rhythm. No murmur heard. Normal peripheral pulses. ABDOMEN: Soft, nontender, nondistended, normal active bowel sounds. EXTREMITIES: N
[2022-12-10 16:06] LABS: Basophils Absolute Auto 0.02 K/mm3 (0.00-0.10); Basophils Percent Auto 0.4 % (0.0-1.0); Eosinophils Absolute Auto 0.04 K/mm3 (0.02-0.50); Eosinophils Percent Auto 0.9 % (1.0-6.0); Hematocrit 36.7 % (35.0-42.0); Hemoglobin 11.7 g/dL (11.7-13.8); Immature Granulocyte Absolute 0.02 K/mm3 (0.00-0.00); Immature Granulocyte Percent A 0.4 % (0.0-0.0); Lymphocytes Absolute Auto 0.98 K/mm3 (1.10-4.50); Lymphocytes Percent Auto 21.1 % (18.0-42.0); Mean Corpuscular HGB Conc 31.9 g/dL (32.0-36.0); Mean Corpuscular Hemoglobin 31.1 pg (27.0-31.0); Mean Corpuscular Volume 97.6 fL (78.0-102.0); Mean Platelet Volume 9.1 fl (9.2-11.8); Monocytes Absolute Auto 0.45 K/mm3 (0.10-0.90); Monocytes Percent Auto 9.7 % (2.0-11.0); Neutrophils Absolute Auto 3.1 K/mm3 (1.7-7.2); Neutrophils Percent Auto 67.5 % (50.0-70.0); Platelet Count Result 216 K/mm3 (150-420); Red Blood Count 3.76 M/mm3 (4.20-5.40); Red Cell Distribution Width 15.9 % (11.6-14.4); White Blood Count 4.6 K/mm3 (4.8-10.8)
[2022-12-10 16:22] LABS: Alanine Aminotransferase 18 U/L (14-59); Albumin Level 2.8 g/dL (3.4-5.0); Alkaline Phosphatase 165 U/L (46-116); Anion Gap 6 mmol/L (8-16); Aspartate Amino Transferase 15 U/L (15-37); Bilirubin,Total 0.5 mg/dL (0.00-1.00); Blood Urea Nitrogen 14 mg/dL (7-18); Calcium 8.6 mg/dL (8.5-10.1); Carbon Dioxide 35 mmol/L (21-32); Chloride 100 mmol/L (98-108); Estimated CRCL calculation 48 ml/min; Estimated Glomerular Filt Rate > 60; Glucose 103 mg/dL (70-99); Osmolality Calculated 292 mOsm/kg (285-295); Potassium 3.7 mmol/L (3.5-5.1); Sodium 141 mmol/L (136-145); Total Protein 6.1 g/dL (6.4-8.2)
[2022-12-10 16:50] LABS: Influenza A QL RT-PCR Negative (Negative); Influenza B QL RT-PCR Negative (Negative); SARS-CoV-2 RNA PCR Negative (Negative)
[2022-12-10 16:57] VITALS: BP 136/68; PULSE 69; RESP 18; TEMP 37; O2SAT 97
== END 2022-12-10 17:04 | disposition home or self-care (01) ==
PROVIDERS: Emergency Provider Preventive Medicine Aerospace Medicine; PCP Physician Assistant
DX: R53.1 Weakness (principal); I10 Essential (primary) hypertension; J44.9 Chronic obstructive pulmonary disease, unspecified; Z98.2 Presence of cerebrospinal fluid drainage device; Z87.891 Personal history of nicotine dependence; Z20.822 Contact with and (suspected) exposure to COVID-19
CPT/HCPCS: 36415; 80053; 85025; 87636; 93005; 99283

== ENCOUNTER 2022-12-21 07:42 | Emergency (ER) | payer MEDICARE, SELFPAY ==
[2022-12-21] VITALS (11 sets, daily range): BP systolic 94–115; BP diastolic 62–77; PULSE 80–107; RESP 16–19; TEMP 36.6; O2SAT 98–100
--- NOTE | ~2022-12-21 | CT_ITS ---
EXAMINATION: CT brain wo con DATE: 12/21/2022 08:52 INDICATION: Head injury. Altered mental status. TECHNIQUE: Computed tomography (CT) of the head was performed without intravenous contrast. The mA wa s adjusted according to patient size. Iterative reconstruction technique was employed. The dose-lengt h product was 605.33 mGy-cm. COMPARISON: Head CT 09/07/2022 FINDINGS: There is ventriculomegaly involving the lateral and third ventricles. There is a right fron tian ventriculostomy catheter with tip in body of right lateral ventricle. There is chronic encephalom alacia in right frontal lobe around the ventriculostomy catheter. There are scattered areas of low at tenuation in the cerebral white matter. There is no intracranial hemorrhage, acute infarction, or abn ormal intracranial mass lesion. There is mild mucosal thickening in the ethmoid sinuses. The mastoid air cells are normal. The orbits are normal. There is right periorbital soft tissue swelling. IMPRESSION: 1. Stable ventriculomegaly involving the lateral and third ventricles with shunt catheter in expected position. 2. Chronic encephalomalacia in right frontal lobe around the shunt catheter. 3. Stable mild nonspecific cerebral white matter disease, which likely represents chronic small vesse l ischemic disease. Reviewed, dictated and finalized at location A. M HAULER IMPRESSION: 1. Stable ventriculomegaly involving the lateral and third ventricles with shun t catheter in expected position. 2. Chronic encephalomalacia in right frontal lobe around the shunt catheter. 3. Stable mild nonspecific cerebral white matter disease, which likely represen ts chronic small vessel ischemic disease.
--- NOTE | ~2022-12-21 | CT_ITS ---
EXAMINATION: CT cervical spine wo con DATE: 12/21/2022 08:52 INDICATION: Head injury. TECHNIQUE: Computed tomography (CT) of the cervical spine was performed without intravenous contrast. Automated exposure control and iterative reconstruction technique were employed. The dose-length pro duct was 183.69 mGy-cm. COMPARISON: CT cervical spine 06/11/2022, chest CT 09/07/2022 FINDINGS: There is 8 degrees dextrocurvature of cervical spine. There is kyphosis of lower cervical s pine. There are compression fractures of T1 and T2 with less than 1/5 loss of height, stable from . There is severely decreased disc height at C4-C5, C5-C6, and C6-C7. The following disc level s are specifically discussed: C2-C3: There is mild bilateral uncovertebral joint osteoarthritis. There is severe bilateral facet blaise int osteoarthritis. There is mild left neural foraminal stenosis. There is no central canal stenosis. C3-C4: There is mild bilateral uncovertebral joint osteoarthritis. There is severe bilateral facet blaise int osteoarthritis. There is mild bilateral neural foraminal stenosis. There is no central canal sten osis. C4-C5: There is severe bilateral uncovertebral joint osteoarthritis. There is severe bilateral facet joint osteoarthritis. There is mild bilateral neural foraminal stenosis. There is mild central canal stenosis. C5-C6: There is mild right and severe left uncovertebral joint osteoarthritis. There is moderate left facet joint osteoarthritis. There is mild left neural foraminal stenosis. There is mild central arelis l stenosis. C6-C7: There is severe bilateral uncovertebral joint osteoarthritis. There is moderate bilateral face t joint osteoarthritis. There is mild bilateral neural foraminal stenosis. There is mild central arelis l stenosis. C7-T1: There is no uncovertebral joint osteoarthritis. There is mild right and severe left facet join t osteoarthritis. There is mild left neural foraminal stenosis. There is no central canal stenosis. IMPRESSION: 1. No acute fracture. 2. Severe cervical spondylosis. Reviewed, dictated and finalized at location A. ND PRODUCTS DIRECTOR
--- NOTE | ~2022-12-21 | CT_ITS ---
EXAMINATION: CT pelvis wo con DATE: 12/21/2022 08:53 INDICATION: Pelvis injury and pain. TECHNIQUE: Computed tomography (CT) of the pelvis was performed without intravenous contrast. Automat ed exposure control and iterative reconstruction technique were employed. The dose-length product was 252.63 mGy-cm. COMPARISON: CT pelvis 06/11/2022 FINDINGS: There are no pathologically enlarged lymph nodes. There is no free intraperitoneal fluid. T here is a comminuted intertrochanteric fracture proximal right femur. The main distal fracture fragme nt demonstrates impaction and 10 degrees varus angulation. There is moderate osteoarthritis of the hi ps. There are healing insufficiency fractures of the sacrum. There is moderate lumbar spondylosis. IMPRESSION: 1. Acute comminuted intertrochanteric fracture of proximal right femur. 2. Healing sacral insufficiency fractures. 3. Moderate osteoarthritis of the hips. Reviewed, dictated and finalized at location A. NURSE
--- NOTE | ~2022-12-21 | XR_ITS ---
EXAMINATION: XR chest 1V portable DATE: 12/21/2022 08:54 INDICATION: Fall. TECHNIQUE: A single frontal view of the chest was obtained. COMPARISON: Chest single view 06/11/2022, chest CT 09/07/2022 FINDINGS: There is mild scarring at the lung apices. There are chronic airspace opacities in right lo wer lung zone. There is a chronic small right pleural effusion. A right ventriculopleural shunt is no hua. No pneumothorax. Cardiomegaly is noted. There are surgical clips around the proximal stomach. Th ere is a right shoulder hemiarthroplasty. There is advanced osteoarthritis of right glenohumeral join t and chronic right rotator cuff tear with cuff arthropathy. There are old healed bilateral rib fract ures. IMPRESSION: 1. Chronic small right pleural effusion with right ventriculopleural shunt. 2. Chronic airspace opacities in right lower lung zone, likely atelectasis. 3. Cardiomegaly. Reviewed, dictated and finalized at location A. SOFTWARE ENGINEER
--- NOTE | 2022-12-21 07:49 | ED.GENADULT ---
HPI - General Adult General Chief complaint: Fall Stated complaint: Fall, hip pain Time Seen by Provider: 12/21/22 07:45 History of Present Illness HPI narrative: Bonita is a 77F with a PMH of multiple falls, osteoporosis, HTN, COPD, anxiety and depression as well as Meniere's disease that was brought in by EMS. She was found down by a neighbor and has only been A&Ox1. She does not know when she fell or how long ago. She was soiled and only complains of pain when moved but does not state where. Related Data Home Medications Medication Instructions Recorded Confirmed cholecalciferol (vitamin D3) 250 250 mcg PO DAILY 09/09/21 12/10/22 mcg (10,000 unit) capsule meclizine 25 mg tablet 25 mg PO TID PRN Dizziness 09/09/21 12/10/22 calcium carbonate-vitamin D3 2 tablet BYMOUTH 1XD 09/08/22 12/10/22 citalopram 20 mg tablet 20 mg PO DAILY 09/08/22 12/10/22 oxybutynin chloride 5 mg tablet 5 mg PO TID 11/12/22 12/10/22 Allergies Allergy/AdvReac Type Severity Reaction Status Date / Time epinephrine Allergy Severe SHAKINESS Verified 12/21/22 09:24 Iodinated Contrast Media Allergy Severe Anaphylaxis Verified 12/21/22 09:24 IVP DYE Allergy Severe RESP ARREST Uncoded 12/21/22 09:24 Contrast Media Allergy Unknown IVP DYE = Uncoded 12/21/22 09:24 RESP ARREST Review of Systems Review of Systems: ROS unobtainable: Yes unobtainable due to mental status PMFSH Past Medical History Medical History COPD (chronic obstructive pulmonary disease) Hypertension Meniere disease Normal pressure hydrocephalus Weakness Surgical History Surgical History S/P VENUE COORDINATOR shunt Family History Family History Mother Cerebrovascular accident Other Diabetes mellitus Family history of mental disorder Hypertension Social History Social History Smoking packs per day: 2 Smoking cigarettes per day: 40.0 Years smoked: 40 Smoking pack-years: 80.00 Smoking status: Former smoker Tobacco type: cigarettes and e-cigarettes/vaping Second hand tobacco smoke exposure: Yes Smoking end date: 10/19/06 Alcohol intake: current Drinks per week: 1 Substance use: never Substance use type: does not use Lack of Transportation: No Lack of Food: Sometimes True Current Housing: I Have Housing Concerned About Future Housing: No Difficulty Paying Gas/Electric Bills: YES Difficulty Paying for Meds: No Currently Unemployed: No Education: Associate Degree Difficulty w/ Childcare or Family Care: No Living arrangements: alone Spiritual care concerns: No Exam Const: General: confusion Nutritional Appearance: well nourished Limitations: altered mental status Other: Oriented to self only. She is soiled with poor smell HENMT: Ears: external ears normal Other: Right orbit contusion with swelling Eyes: Conjunctivae: conjunctivae normal Pupils: Equal, round and reactive pupils present EOM: EOMs intact bilaterally Neck: Neck: normal visual inspection Chest: Other: No deformity Resp: Effort & Inspection: normal respiratory effort and not labored Auscultation: clear to auscultation bilaterally Cardio: Rate: tachycardic Rhythm: abnormal rhythm Other: irregularly irregular GI: Other: Multiple episodes of diarrhea just after arrival Skin: Other: ecchymosis on lateral side of right pelvis Neuro: General: moves all extremities and CN's II-XI intact bilaterally Speech: Abnormal speech present garbled Other: Oriented to self only Extrem: Other: Right leg was shortened and externally rotated Psych: Other: Anxious appearing Course Course Emergency Course: She later had an episode of coffee ground emesis. She was given morphine, zofran, and Protonix. Ordered labs a
[2022-12-21] MEDS: ONDANSETRON INJ 4 MG/2 ML VIAL IV PUSH (08:06)
[2022-12-21] MEDS: MORPHINE SULFATE (*CRX) 4 MG/ML INJ IV PUSH (08:54)
--- NOTE | 2022-12-21 09:08 | ECG_ITS ---
Measurements Intervals [place] Rate: 77 P: AL: 0 QRS: 38 QRSD: 74 T: 64 QT: 365 QTc: 414 Interpretive Statements SINUS RHYTHM SUPRAVENTRICULAR BIGEMINY AND ATRIAL AND VENTRICULAR PREMATURE COMPLEXES BORDERLINE ST-T WAVE ABNORMALITY- DIFFUSE LEADS BASELINE ARTIFACT- II ABNORMAL ECG COMPARED TO ECG 12/10/2022 15:42:07 SUPRAVENTRICULAR BIGEMINY NOW PRESENT Electronically Signed On 12-21-2022 14:42:24 UTILITY WORKER FILM PROCESSING by Austin Arguelles D.O.
[2022-12-21 09:25] LABS: Basophils Absolute Auto 0.01 K/mm3 (0.00-0.10); Basophils Percent Auto 0.1 % (0.0-1.0); Eosinophils Absolute Auto 0.01 K/mm3 (0.02-0.50); Eosinophils Percent Auto 0.1 % (1.0-6.0); Hematocrit 37.5 % (35.0-42.0); Hemoglobin 12.5 g/dL (11.7-13.8); Immature Granulocyte Absolute 0.05 K/mm3 (0.00-0.00); Immature Granulocyte Percent A 0.4 % (0.0-0.0); Lymphocytes Absolute Auto 0.43 K/mm3 (1.10-4.50); Lymphocytes Percent Auto 3.1 % (18.0-42.0); Mean Corpuscular HGB Conc 33.3 g/dL (32.0-36.0); Mean Corpuscular Hemoglobin 31.4 pg (27.0-31.0); Mean Corpuscular Volume 94.2 fL (78.0-102.0); Mean Platelet Volume 10.8 fl (9.2-11.8); Monocytes Absolute Auto 0.87 K/mm3 (0.10-0.90); Monocytes Percent Auto 6.4 % (2.0-11.0); Neutrophils Absolute Auto 12.3 K/mm3 (1.7-7.2); Neutrophils Percent Auto 89.9 % (50.0-70.0); Platelet Count Result 148 K/mm3 (150-420); Red Blood Count 3.98 M/mm3 (4.20-5.40); Red Cell Distribution Width 15.6 % (11.6-14.4); White Blood Count 13.7 K/mm3 (4.8-10.8)
[2022-12-21 09:33] LABS: INR 1.2; Prothrombin Time 12.5 Seconds (9.50-12.10)
[2022-12-21] MEDS: SODIUM CHLORIDE 0.9% IV 1,000 ML 100 ML IV CONT (09:37)
[2022-12-21 09:39] LABS: Lactic Acid Reflex 1.6 mmol/L (0.4-2.0)
[2022-12-21 09:44] LABS: Alanine Aminotransferase 23 U/L (14-59); Albumin Level 2.4 g/dL (3.4-5.0); Alkaline Phosphatase 145 U/L (46-116); Anion Gap 8 mmol/L (8-16); Aspartate Amino Transferase 38 U/L (15-37); Bilirubin,Total 1.1 mg/dL (0.00-1.00); Blood Urea Nitrogen 27 mg/dL (7-18); Calcium 8.6 mg/dL (8.5-10.1); Carbon Dioxide 29 mmol/L (21-32); Chloride 101 mmol/L (98-108); Creatine Kinase 628 U/L (26-192); Estimated Glomerular Filt Rate > 60; Ethanol 3 mg/dL (0-6); Glucose 180 mg/dL (70-99); NT Pro B Type Natriuretic Pept 1705 pg/mL (0-450); Osmolality Calculated 296 mOsm/kg (285-295); Potassium 3.4 mmol/L (3.5-5.1); Sodium 138 mmol/L (136-145); Total Protein 6.2 g/dL (6.4-8.2)
[2022-12-21 10:05] LABS: Influenza A QL RT-PCR Negative (Negative); Influenza B QL RT-PCR Negative (Negative); SARS-CoV-2 RNA PCR Negative (Negative)
[2022-12-21 10:07] LABS: RSV RNA, RT-PCR Negative (Negative)
[2022-12-21] MEDS: ERYTHROMYCIN OPHTH OINTMENT 3.5 GM TUBE 1 APPLIC EACH EYE (10:31)
--- NOTE | 2022-12-21 10:56 | PC.NURSE ---
IV NS and Protonix drip continued during transfer
--- NOTE | 2022-12-27 13:01 | PC.NURSE ---
final blood culture reports reviewed. no growth after 5 days. no change in plan of care
== END 2022-12-21 10:50 | disposition short-term general hospital (02) ==
PROVIDERS: Emergency Provider Family Medicine; PCP Physician Assistant
DX: S72.141A Displaced intertrochanteric fracture of right femur, initial encounter for closed fracture (principal); R41.82 Altered mental status, unspecified; R77.8 Other specified abnormalities of plasma proteins; H81.09 Meniere's disease, unspecified ear; J44.9 Chronic obstructive pulmonary disease, unspecified; I10 Essential (primary) hypertension; Z79.899 Other long term (current) drug therapy; Z87.891 Personal history of nicotine dependence; Z20.822 Contact with and (suspected) exposure to COVID-19; W19.XXXA Unspecified fall, initial encounter
CPT/HCPCS: 36415; 51702; 70450; 71045; 72125; 72192; 80053; 80307; 82550; 83605; 83880; 84484; 85025; 85610; 87040; 87637; 93005; 96365; 96375; 99285; A9270; C9113; J2270; J2405; J7030; J7060

== ENCOUNTER 2023-02-04 09:18 | Observation (INO) | payer MEDICARE, MEDICAID, SELFPAY ==
--- NOTE | ~2023-02-04 | XR_ITS ---
Portable chest x-ray Comparison: 12/21/2022 Clinical History: COPD, weakness Findings: Small right pleural effusion present. Probable minimal left pleural effusion. Cardiomedia stinal silhouette is stable. Ventriculopleural shunt in right shoulder arthroplasty are present. Impression: Small right pleural effusion, with ventriculopleural shunt. Possible minimal left pleural effusion. Reviewed, dictated and finalized at location . Impression: Small right pleural effusion, with ventriculopleural shunt. Possible minimal left pleural effusion.
--- NOTE | ~2023-02-04 | CT_ITS ---
EXAMINATION: CT pelvis wo con DATE: 02/04/2023 11:05 INDICATION: Right hip surgery one month prior with recent falls. TECHNIQUE: High resolution computed tomography (CT) of the pelvis was performed without intravenous c ontrast. Additional sagittal and coronal reconstructions were performed. Automated exposure control a nd iterative reconstruction technique were employed. The dose-length product was 318.39 mGy-cm. COMPARISON: CT dated 12/21/2022 and 06/11/2022 FINDINGS: interval development of some not yet solidly bridging callus formation along the margins of a nondisp laced internally fixed intertrochanteric fracture the proximal right femur. The fracture is fixed wit h a short antegrade intramedullary gmue with interlocking femoral neck and distal screws. No interval change in a horizontal band of sclerosis extending across the sacrum at the level of S3-S4 consistent with an additional age-indeterminate transverse fracture which is new since 06/11/2022. No new fractu res identified. Polyarticular osteoarthritis, mild at the right and moderate at the left hips, mild a t the bilateral sacroiliac joints and moderate to severe at the bilateral lower lumbar facet joints. There is also mild disc height loss at L4-L5. Postoperative changes with multiple anastomotic suture lines along the bowels in the pelvis. Small amount of gas and a Lang catheter within the decompresse d bladder. Normal for age and atrophic uterus or free fluid in the pelvis. No pathologically enlarged pelvic or inguinal lymphadenopathy. IMPRESSION: 1. Healing internally fixed intertrochanteric fracture the proximal right femur which is in near-leela omic alignment. No new fractures identified. 2. Unchanged nondisplaced age-indeterminate transverse fracture across the sacrum at the level of S3- S4. Reviewed, dictated and finalized at location A. IMPRESSION: 1. Healing internally fixed intertrochanteric fracture the proximal right femur which is in near-anatomic alignment. No new fractures identified. 2. Unchanged nondisplaced age-indeterminate transverse fracture across the sacr um at the level of S3-S4.
--- NOTE | ~2023-02-04 | CT_ITS ---
CT head without contrast Indication: Right-sided weakness COMPARISON: 12/21/2022 Technique: Serial scans were obtained through the brain without the administration of contrast. Dose reduction technique was used on this scan by utilizing automated exposure control and iterative recon struction technique. The dose-length product (DLP) was 605.33 mGy-cm. Findings: There is no evidence of intracranial hemorrhage, mass lesion, or acute infarct. The ventri cles are moderately dilated, out of proportion to remaining subarachnoid spaces. Ventriculostomy shun t catheter in place. Stable chronic encephalomalacia about the ventriculostomy shunt catheter. Low at tenuation regions are seen within the periventricular white matter bilaterally, likely representing c hanges from chronic microvascular ischemic disease. There is no evidence of edema, mass effect or mi dline shift. The visualized paranasal sinuses and mastoid air cells are clear. Impression: No intracranial hemorrhage, mass, or acute infarct. Moderate ventricular dilatation with ventriculostomy shunt catheter in place, similar to prior exam. Reviewed, dictated and finalized at location M. Impression: No intracranial hemorrhage, mass, or acute infarct. Moderate ventricular dilatation with ventriculostomy shunt catheter in place, s imilar to prior exam.
[2023-02-04 09:20] VITALS: BP 141/85; PULSE 84; RESP 18; TEMP 36.2; O2SAT 94
--- NOTE | 2023-02-04 10:04 | ED.WEAKNESS ---
HPI - Weakness General Chief complaint: Urogenital-Female Stated complaint: Incontinent Time Seen by Provider: 02/04/23 09:54 Source: EMS Mode of arrival: ambulatory History of Present Illness HPI Narrative: 77-year-old female, ex-smoker with a history of anxiety/depression, gerd,hypertension, Menieres disease, COPD, normal pressure hydrocephalus status post SEQUINS SLINGER shunt recurrent falls with rib fractures, sacral fracture, a recent right intertrochanteric hip fracture on 12/21/2022 status post surgery was discharged home from the intermediate, after she had surgery at from [facility]. she was admitted to [facility] on 12/26/2022 and discharged on 01/21/2023 She presents to the ER today via EMS with -- urinary incontinence and possibly fecal incontinence -- inability to walk -- confusion the patient is unable to provide adequate history. MD Complaint: generalized weakness Onset (ago): day(s) Duration: constant Location: generalized Severity: mild Relieving factors: none Exacerbating factors: none Related Data Home Medications Medication Instructions Recorded Confirmed oxybutynin chloride 5 mg tablet 5 mg PO BID 11/12/22 02/04/23 acetaminophen 325 mg tablet 650 mg PO Q6H PRN Pain 02/04/23 02/04/23 atorvastatin 20 mg tablet 20 mg PO DAILY 02/04/23 02/04/23 bacitracin 500 unit/gram topical 1 applic topical DAILY 02/04/23 02/04/23 ointment hydrocodone 5 mg-acetaminophen 325 1 tablet PO Q6H PRN Pain 02/04/23 02/04/23 mg tablet lidocaine 4 % topical patch 1 patch topical DAILY 02/04/23 02/04/23 (Lidocaine Pain Relief) multivitamin 1 tablet PO DAILY 02/04/23 02/04/23 sennosides 8.6 mg capsule (senna) 8.6 mg PO BID PRN Constipation 02/04/23 02/04/23 solifenacin 5 mg tablet (Vesicare) 5 mg PO DAILY 02/04/23 02/04/23 Allergies Allergy/AdvReac Type Severity Reaction Status Date / Time epinephrine Allergy Severe SHAKINESS Verified 02/04/23 10:05 Iodinated Contrast Media Allergy Severe Anaphylaxis Verified 02/04/23 10:05 IVP DYE Allergy Severe RESP ARREST Uncoded 04/19/23 10:05 Contrast Media Allergy Unknown IVP DYE = Uncoded 02/04/23 10:05 RESP ARREST Review of Systems Review of Systems: All systems reviewed & are unremarkable except as noted in HPI and below Constitutional: Constitutional: Reports as per HPI and Reports no additional constitutional complaints Eyes: Eyes: Reports as per HPI and Reports no additional eye complaints ENT: Reports system reviewed and no additional complaints, except as documented and Reports as per HPI Cardiovascular: Cardiovascular: Reports as per HPI and Reports no additional cardiovascular complaints Respiratory: Respiratory: Reports as per HPI and Reports no additional respiratory complaints Gastrointestinal: Gastrointestinal: Reports as per HPI and Reports no additional gastrointestinal complaints Genitourinary: Genitourinary: Reports urinary incontinence Musculoskeletal: Musculoskeletal: Reports no additional musculoskeletal complaints and Reports as per HPI Integumentary/Breasts: Skin/Breast: Reports system reviewed and no additional complaints, except as docu and Reports as per HPI Neurologic: Reports system reviewed and no additional complaints, except as documented and Reports as per HPI Psychiatric: Psychiatric: Reports no additional psychiatric complaints and Reports as per HPI Endocrine: Endocrine: Reports no additional endocrine complaints and Reports as per HPI Hematologic/Lymphatic: Hematologic/Lymphatic: Reports no additional hematologic/lymphatic complaints and Reports as per HPI Allergic/Immunologic: Allergic/Immunologic: Reports no additional allergic/immunologic complaints and Reports as per HPI PMFSH Past Medical History Medical History (Updated 02/04/23 @ 12:47 by Travon No MD) COPD (chronic obstructive pulmonary disease) Hip fracture requiring operative repair Hypertension Meniere disease Normal pressure hydrocephalus We
--- NOTE | 2023-02-04 10:19 | ECG_ITS ---
Measurements Intervals [place] Rate: 89 P: 76 SC: 125 QRS: 73 QRSD: 75 T: 60 QT: 352 QTc: 429 Interpretive Statements SINUS RHYTHM WITH OCCASIONAL SUPRAVENTRICULAR PREMATURE COMPLEXES NONSPECIFIC T-WAVE ABNORMALITY ABNORMAL ECG COMPARED TO ECG 12/21/2022 09:08:51 NO SIGNIFICANT CHANGES Electronically Signed On 02-05-2023 16:32:42 CDT by Francisco Arias M.D.
[2023-02-04 11:07] LABS: Appearance Urine Clear (Clear); Bilirubin Urine Negative (Negative); Blood Urine Negative (Negative); Color Urine Light Yellow (Yellow); Glucose Urine UA Negative (Negative); Ketones Urine Negative (Negative); Leukocyte Esterase Ur Trace LEU/UL (Negative); Nitrate Urine Positive (Negative); Protein Urine Negative (Negative); pH Urine 6.5 (5.0-8.0)
[2023-02-04 11:13] LABS: Add Urine Microscopic? YES; Bacteria Urine 4+ /hpf; RBC Urine None seen /hpf (0-2); Squamous Epithelial Cell Urine Rare /hpf (Few)
[2023-02-04 11:24] LABS: Basophils Absolute Auto 0.02 K/mm3 (0.00-0.10); Basophils Percent Auto 0.3 % (0.0-1.0); Hematocrit 36.7 % (35.0-42.0); Hemoglobin 11.5 g/dL (11.7-13.8); Immature Granulocyte Absolute 0.02 K/mm3 (0.00-0.00); Immature Granulocyte Percent A 0.3 % (0.0-0.0); Lymphocytes Absolute Auto 0.97 K/mm3 (1.10-4.50); Lymphocytes Percent Auto 12.6 % (18.0-42.0); Mean Corpuscular HGB Conc 31.3 g/dL (32.0-36.0); Mean Corpuscular Hemoglobin 30.2 pg (27.0-31.0); Mean Corpuscular Volume 96.3 fL (78.0-102.0); Mean Platelet Volume 9.3 fl (9.2-11.8); Monocytes Absolute Auto 0.48 K/mm3 (0.10-0.90); Monocytes Percent Auto 6.3 % (2.0-11.0); Neutrophils Absolute Auto 6.2 K/mm3 (1.7-7.2); Neutrophils Percent Auto 80.5 % (50.0-70.0); Platelet Count Result 236 K/mm3 (150-420); Red Blood Count 3.81 M/mm3 (4.20-5.40); Red Cell Distribution Width 13.5 % (11.6-14.4); White Blood Count 7.7 K/mm3 (4.8-10.8)
[2023-02-04 11:37] LABS: INR 1.1; Prothrombin Time 11.7 Seconds (9.50-12.10)
[2023-02-04 11:43] LABS: Troponin I 8.7 ng/L (0.00-60.4)
[2023-02-04 11:46] LABS: Alanine Aminotransferase 13 U/L (14-59); Albumin Level 3.1 g/dL (3.4-5.0); Alkaline Phosphatase 145 U/L (46-116); Anion Gap 5 mmol/L (8-16); Aspartate Amino Transferase 20 U/L (15-37); Bilirubin,Total 0.6 mg/dL (0.00-1.00); Blood Urea Nitrogen 14 mg/dL (7-18); Calcium 10.2 mg/dL (8.5-10.1); Carbon Dioxide 36 mmol/L (21-32); Chloride 99 mmol/L (98-108); Creatine Kinase 21 U/L (26-192); Estimated CRCL calculation 65 ml/min; Estimated Glomerular Filt Rate > 60; Glucose 102 mg/dL (70-99); Lipase 12 U/L (16-77); NT Pro B Type Natriuretic Pept 548 pg/mL (0-450); Osmolality Calculated 290 mOsm/kg (285-295); Potassium 4.1 mmol/L (3.5-5.1); Sodium 140 mmol/L (136-145)
[2023-02-04 11:58] LABS: Influenza A QL RT-PCR Negative (Negative); Influenza B QL RT-PCR Negative (Negative); SARS-CoV-2 RNA PCR Negative (Negative)
[2023-02-04 11:59] LABS: RSV RNA, RT-PCR Negative (Negative)
--- NOTE | 2023-02-04 13:13 | PC.NURSE ---
Dressing and bacitracin ointment applied to Right hip
--- NOTE | 2023-02-04 14:16 | PC.NURSE ---
Pt admitted as an OBS pt from ER. RN reviewed with pt how to use the call light, TV controls and to call for assistance with getting up. Visiting hours, hospital policy regarding smoking. Pt is A/O x3.
[2023-02-04 14:23] VITALS: BMI 21.4
--- NOTE | 2023-02-04 14:28 | PC.NURSE ---
On 02/04/23, the student, [shayna bailey ], provided care and completed [facility] documentation on this patient. I have reviewed the student's documentation and agree with the findings.
[2023-02-04 16:00] VITALS: BP 153/93; PULSE 112; RESP 20; TEMP 36.3; O2SAT 92
[2023-02-04] MEDS: traMADol HCL (*CRX) 50 MG TABLET PO (17:50)
[2023-02-04] MEDS: HYDROcodone/acetaminophen (*CRX) 5-325 MG TABLET 1 TAB PO (20:54)
[2023-02-04] MEDS: traZODone HCL 50 MG TABLET PO (20:55)
[2023-02-05] VITALS: BP 99/66; PULSE 103; RESP 16; TEMP 36.4; O2SAT 94
[2023-02-05 07:57] VITALS: BP 117/80; PULSE 72; RESP 18; TEMP 36.4; O2SAT 94
[2023-02-05] MEDS: PANTOPRAZOLE SOD SESQUIHYDRATE 20 MG TAB PO (08:35)
[2023-02-05] MEDS: ENOXAPARIN 40 MG/0.4 ML SYRINGE SUB-Q (08:35)
[2023-02-05 09:17] LABS: Hematocrit 32.8 % (35.0-42.0); Hemoglobin 10.2 g/dL (11.7-13.8); Mean Corpuscular HGB Conc 31.1 g/dL (32.0-36.0); Mean Corpuscular Hemoglobin 30.3 pg (27.0-31.0); Mean Corpuscular Volume 97.3 fL (78.0-102.0); Mean Platelet Volume 9.7 fl (9.2-11.8); Platelet Count Result 197 K/mm3 (150-420); Red Blood Count 3.37 M/mm3 (4.20-5.40); Red Cell Distribution Width 13.7 % (11.6-14.4)
[2023-02-05 09:27] LABS: Anion Gap 5 mmol/L (8-16); Blood Urea Nitrogen 17 mg/dL (7-18); Calcium 10.5 mg/dL (8.5-10.1); Carbon Dioxide 35 mmol/L (21-32); Chloride 100 mmol/L (98-108); Estimated CRCL calculation 55 ml/min; Estimated Glomerular Filt Rate > 60; Glucose 209 mg/dL (70-99); Osmolality Calculated 297 mOsm/kg (285-295); Potassium 4.1 mmol/L (3.5-5.1); Sodium 140 mmol/L (136-145)
[2023-02-05] MEDS: oxyBUTYnin CHLORIDE 5 MG TABLET PO ×2 (10:31→17:17)
[2023-02-05] MEDS: MULTIVITAMINS THERAPEUTIC TAB (*BKC) 1 TABLET PO (10:31)
[2023-02-05] MEDS: SERTRALINE HCL 25 MG TABLET PO (10:32)
[2023-02-05] MEDS: ATORVASTATIN 10 MG TABLET 20 MG PO (10:32)
[2023-02-05] MEDS: SOLIFENACIN 5 MG TABLET PO (10:32)
[2023-02-05] MEDS: BACITRACIN OINTMENT 15 GM TUBE 1 APPLIC TOPICAL (14:02)
[2023-02-05] MEDS: traMADol HCL (*CRX) 50 MG TABLET PO (14:23)
[2023-02-05 16:00] VITALS: BP 117/73; PULSE 83; RESP 14; TEMP 36.4; O2SAT 96
[2023-02-05 20:00] VITALS: PULSE 83; RESP 14; O2SAT 96
[2023-02-05] MEDS: HYDROcodone/acetaminophen (*CRX) 5-325 MG TABLET 1 TAB PO (20:01)
[2023-02-05] MEDS: traZODone HCL 50 MG TABLET PO (20:01)
[2023-02-06] VITALS: BP 114/70; PULSE 96; RESP 16; TEMP 36.3; O2SAT 93
[2023-02-06] MEDS: HYDROcodone/acetaminophen (*CRX) 5-325 MG TABLET 1 TAB PO (07:21)
[2023-02-06 07:56] VITALS: BP 124/78; PULSE 87; RESP 16; TEMP 36.5; O2SAT 89
[2023-02-06] MEDS: ENOXAPARIN 40 MG/0.4 ML SYRINGE SUB-Q (08:53)
[2023-02-06] MEDS: LIDOCAINE 5% PATCH 1 PATCH TRANSDERM (08:54)
[2023-02-06] MEDS: MULTIVITAMINS THERAPEUTIC TAB (*BKC) 1 TABLET PO (08:56)
[2023-02-06] MEDS: SOLIFENACIN 5 MG TABLET PO (08:56)
[2023-02-06] MEDS: SERTRALINE HCL 25 MG TABLET PO (08:56)
[2023-02-06] MEDS: ATORVASTATIN 10 MG TABLET 20 MG PO (08:57)
[2023-02-06] MEDS: oxyBUTYnin CHLORIDE 5 MG TABLET PO (08:57)
[2023-02-06] MEDS: PANTOPRAZOLE 40 MG TABLET PO (08:57)
[2023-02-06] MEDS: PANTOPRAZOLE SOD SESQUIHYDRATE 20 MG TAB PO (08:58)
[2023-02-06] MEDS: BACITRACIN OINTMENT 15 GM TUBE 1 APPLIC TOPICAL (08:58)
[2023-02-06 09:31] LABS: SARS-CoV-2 Ag Negative (Negative)
[2023-02-06 09:54] LABS: Hematocrit 33.1 % (35.0-42.0); Mean Corpuscular HGB Conc 30.2 g/dL (32.0-36.0); Mean Corpuscular Hemoglobin 29.7 pg (27.0-31.0); Mean Corpuscular Volume 98.2 fL (78.0-102.0); Mean Platelet Volume 9.6 fl (9.2-11.8); Platelet Count Result 197 K/mm3 (150-420); Red Blood Count 3.37 M/mm3 (4.20-5.40); Red Cell Distribution Width 13.5 % (11.6-14.4); White Blood Count 7.4 K/mm3 (4.8-10.8)
--- NOTE | 2023-02-06 10:01 | PM.SD2 ---
Same Day Admit/Disch: HPI History of Present Illness Chief complaint: AMS Narrative: Bonita Modi is a 77 year old female that presented to our emergency department with altered mental status. patient has a past medical history of COPD, hypertension Meniere disease, and Normal pressure hydrocephalus. Patient is well-known to our establishment and has been on our swing bed for physical therapy occupational therapy several times. It has been recommended each time that she transition to a usp or assisted living each time patient has refused. Patient recently discharged from hospital due to a hip fracture on 12/21/2022 and was discharged to her usp for rehab. patient is being admitted for urinary tract infection. She was found on her floor by her neighbors stool and urine and feces. She is not able to take care of herself patient's vitals on admission 36.2, 84, 08306/85, 94% on room air. Patient's WBC 7.7, hemoglobin 11.5, hematocrit 36.7, platelets 236, potassium 4.1, sodium 40, BUN 14, creatinine 0.62, platelets 102, lactic acid 1.0 UA positive for nitrate leukocytes and bacteria patient's CT of the chest head and pelvis with no new findings. The patient denies SOB, CP, palpitation, extremity numbness, lightheadedness, dizziness, constipation, diarrhea, chills, or fever. [facility] Past Medical History Medical History (Updated 02/05/23 @ 08:55 by SADE Cole) COPD (chronic obstructive pulmonary disease) Hip fracture requiring operative repair Hypertension Meniere disease Normal pressure hydrocephalus Weakness Surgical History Surgical History (Updated 02/04/23 @ 10:17 by Travon No MD) History of hip surgery S/P PATIENT TRANSPORTATION DRIVER shunt Status post right shoulder hemiarthroplasty Family History Family History Mother Cerebrovascular accident Other Diabetes mellitus Family history of mental disorder Hypertension Social History Social History Smoking packs per day: 2 Smoking cigarettes per day: 40.0 Years smoked: 40 Smoking pack-years: 80.00 Smoking status: Never smoker Tobacco type: cigarettes and e-cigarettes/vaping Second hand tobacco smoke exposure: No Smoking end date: 10/19/06 Alcohol intake: never Drinks per week: 1 Substance use: never Substance use type: does not use Lack of Transportation: No Lack of Food: Never True Current Housing: I Have Housing Concerned About Future Housing: No Difficulty Paying Gas/Electric Bills: No Difficulty Paying for Meds: No Currently Unemployed: No Education: High School Diploma/GED Difficulty w/ Childcare or Family Care: No Living arrangements: alone Spiritual care concerns: No Same Day Admit/Disch: Med Pre-admit Medications Home Medications Medication Instructions Recorded Confirmed Type omeprazole 20 mg capsule,delayed 20 mg PO BID #180 caps 01/01/22 02/04/23 Rx release oxybutynin chloride 5 mg tablet 5 mg PO BID 11/12/22 02/04/23 History acetaminophen 325 mg tablet 650 mg PO Q6H PRN Pain 02/04/23 02/04/23 History atorvastatin 20 mg tablet 20 mg PO DAILY 02/04/23 02/04/23 History bacitracin 500 unit/gram topical 1 applic topical DAILY 02/04/23 02/04/23 History ointment lidocaine 4 % topical patch 1 patch topical DAILY 02/04/23 02/04/23 History (Lidocaine Pain Relief) multivitamin 1 tablet PO DAILY 02/04/23 02/04/23 History sennosides 8.6 mg capsule (senna) 8.6 mg PO BID PRN Constipation 02/04/23 02/04/23 History solifenacin 5 mg tablet (Vesicare) 5 mg PO DAILY 02/04/23 02/04/23 History hydrocodone 5 mg-acetaminophen 325 1 tablet PO Q6H PRN Pain #30 tabs 02/05/23 Rx mg tablet sertraline 25 mg tablet 25 mg PO DAILY #90 tabs 02/05/23 Rx Exam Narrative: GENERAL: This is a well-nourished, well-developed patient, in no apparent distress. HEAD: normocephalic, atraumatic
--- NOTE | 2023-02-06 10:04 | PM.DS ---
DS: Admitting Diagnosis Discharge Date 02/06/2023 Admitting Diagnosis altered mental status secondary to UTI DS: Discharge Diagnosis Discharge Diagnosis (1) AMS (altered mental status): Code(s): R41.82 - Altered mental status, unspecified Status: Acute Assessment and Plan: secondary to UTI continue Rocephin WBC and lactic acid within normal limits blood culture with growth of E coli sensitive to cefdinir CT of the head no new findings (2) UTI (urinary tract infection): Code(s): N39.0 - Urinary tract infection, site not specified Status: Acute Assessment and Plan: UA positive for leukocytes and bacteria continue Rocephin will discharge with cefdinir WBC is within normal limits UA culture positive for E coli sensitive to cefdinir (3) Weakness generalized: Code(s): R53.1 - Weakness Status: Acute Assessment and Plan: PT OT eval completed patient will transition to a longterm (4) Anxiety and depression: Code(s): F41.9 - Anxiety disorder, unspecified; F32.A - Depression, unspecified Status: Acute Assessment and Plan: continue home medication (5) Osteoporosis: Code(s): M81.0 - Age-related osteoporosis without current pathological fracture Status: Acute Assessment and Plan: continue home medication (6) COPD (chronic obstructive pulmonary disease): Code(s): J44.9 - Chronic obstructive pulmonary disease, unspecified Status: Acute Assessment and Plan: stable continue home medication (7) Hypertension: Code(s): I10 - Essential (primary) hypertension Status: Acute Assessment and Plan: stable continue home medication (8) Meniere disease: Code(s): H81.09 - Meniere's disease, unspecified ear Status: Acute Assessment and Plan: stable continue home medication (9) Closed rib fracture: Qualifiers: Encounter type: initial encounter Laterality: left Rib fracture type: multiple ribs Qualified Code(s): S22.42XA - Multiple fractures of ribs, left side, initial encounter for closed fracture Code(s): S22.39XA - Fracture of one rib, unspecified side, initial encounter for closed fracture Status: Acute DS: Summary Hospital Course Reason for hospitalization: AMS Hospital Course: Bonita Modi is a 77 year old female? that presented to our emergency department with altered mental status. patient has a past medical history of COPD, hypertension Meniere disease, and Normal pressure hydrocephalus.? Patient is well-known to our? establishment and has been on our swing bed for physical therapy occupational therapy several times.? It has been recommended each time that she transition to a longterm or assisted living each time patient has refused.? Patient recently discharged from hospital due to a hip fracture on 12/21/2022 and was discharged to her longterm for rehab. patient is being admitted for urinary tract infection.? She was found on her floor by her neighbors stool and urine and feces.? She is not able to take care of herself patient's vitals on admission 36.2, 84, 48330/85,? 94% on room air.? Patient's WBC 7.7, hemoglobin 11.5, hematocrit 36.7, platelets 236, potassium 4.1, sodium 40, BUN 14, creatinine 0.62, platelets 102, lactic acid 1.0 UA positive for nitrate leukocytes and bacteria patient's CT of the chest head and pelvis with no new findings. The patient denies SOB, CP, palpitation, extremity numbness, lightheadedness, dizziness, constipation, diarrhea, chills, or fever. patient UA with a growth of E coli she will discharge to [facility] facility with cefdinir. Time Spent with Patient Time attestation: Total time spent providing and/or coordinating discharge services: Exam Narrative: GENERAL: This is a well-nourished, well-developed patient, in no apparent distress. HEAD: normocephalic, atr
[2023-02-06 10:12] LABS: Alanine Aminotransferase 15 U/L (14-59); Albumin Level 2.7 g/dL (3.4-5.0); Alkaline Phosphatase 114 U/L (46-116); Anion Gap 5 mmol/L (8-16); Aspartate Amino Transferase 14 U/L (15-37); Bilirubin,Total 0.3 mg/dL (0.00-1.00); Blood Urea Nitrogen 18 mg/dL (7-18); Calcium 9.2 mg/dL (8.5-10.1); Carbon Dioxide 34 mmol/L (21-32); Chloride 101 mmol/L (98-108); Estimated CRCL calculation 58 ml/min; Estimated Glomerular Filt Rate > 60; Glucose 197 mg/dL (70-99); Osmolality Calculated 296 mOsm/kg (285-295); Potassium 3.6 mmol/L (3.5-5.1); Sodium 140 mmol/L (136-145); Total Protein 6.3 g/dL (6.4-8.2)
--- NOTE | 2023-02-06 10:15 | PC.NURSE ---
Patient discharging to [facility]. IV discontinued and peck catheter discontinued in preparation for discharge.
--- NOTE | 2023-02-06 10:20 | PC.NURSE ---
Patient discharged to [facility] in [place]. Patient left unit in w/c and left hospital in privately owned vehicle. Report called to Rylee at alf. Rylee verbalized understanding.
--- NOTE | 2023-02-09 10:21 | PC.NURSE ---
retirement nurse states they received and understood the discharge instructions.
== END 2023-02-06 10:20 ==
LOC: CHSED 12:47 → CHS2ND 13:15
PROVIDERS: Nurse Practitioner; Admitting Provider Internal Medicine; Emergency Provider Internal Medicine Critical Care Medicine; PCP Physician Assistant; Visit Provider Internal Medicine
DX: N39.0 Urinary tract infection, site not specified (principal); K21.9 Gastro-esophageal reflux disease without esophagitis; I10 Essential (primary) hypertension; J44.9 Chronic obstructive pulmonary disease, unspecified; S72.141D Displaced intertrochanteric fracture of right femur, subsequent encounter for closed fracture with routine healing; R62.7 Adult failure to thrive; H81.09 Meniere's disease, unspecified ear; G91.2 (Idiopathic) normal pressure hydrocephalus; F41.9 Anxiety disorder, unspecified; F32.A Depression, unspecified; Z68.21 Body mass index [BMI] 21.0-21.9, adult; Z20.822 Contact with and (suspected) exposure to COVID-19; Z98.2 Presence of cerebrospinal fluid drainage device; Z87.891 Personal history of nicotine dependence
CPT/HCPCS: 36415; 70450; 71045; 72192; 80048; 80053; 81001; 82550; 83605; 83690; 83880; 84484; 85025; 85027; 85610; 87077; 87086; 87088; 87186; 87426; 87637; 93005; 96365; 96366; 96372; 97110; 97161; 97165; 97530; 99285; A9270; C9803; G0378; J0696; J1650